=== PATIENT | male | born 1995 | race Caucasian/White ===

== ENCOUNTER → 2016-10-17 | Outpatient (REF) | payer BC ==
[~2016-10-17] MED LIST: CELE20TA PO
[2016-10-17 12:20] LABS: BASO % 0.9 % (0.0-1.0); EOS # 0.1 K/mm3 (0.0-0.50); EOS % 1.8 % (0.0-3.0); LARGE UNSTAINED CELL # 0.1 K/mm3 (0.0-0.4); LARGE UNSTAINED CELL % 2.3 % (0.0-4.0); LYMPH # 2.5 K/mm3 (1.5-6.5); LYMPH % 45.7 % (24.0-44.0); MEAN CORPUSCULAR HEMOGLOBIN 31.6 pg (27.0-33.0); MEAN CORPUSCULAR HGB CONC 34.5 g/dl (32.0-36.5); MEAN CORPUSCULAR VOLUME 91.7 fl (80.0-96.0); MONO # 0.4 K/mm3 (0.0-0.8); MONO % 7.3 % (0.0-5.0); NEUTROPHILS # 2.2 K/mm3 (1.8-7.7); PLATELET COUNT, AUTOMATED 189 k/mm3 (150-450); RED CELL DISTRIBUTION WIDTH 13.5 % (11.5-14.5); WHITE BLOOD COUNT 5.1 K/mm3 (4.0-10.0)
[2016-10-17 13:01] LABS: ALBUMIN 4.3 GM/DL (3.2-5.2); ALBUMIN/GLOBULIN RATIO 1.34 (1.00-1.93); ALKALINE PHOSPHATASE 116 U/L (45-117); ALT/SGPT 36 U/L (12-78); ANION GAP 5 MEQ/L (8-16); AST/SGOT 21 U/L (15-37); BILIRUBIN,TOTAL 0.5 MG/DL (0.2-1.0); BLOOD UREA NITROGEN 12 MG/DL (7-18); CALCIUM LEVEL 8.8 MG/DL (8.5-10.1); CARBON DIOXIDE LEVEL 26 MEQ/L (21-32); CHLORIDE LEVEL 106 MEQ/L (98-107); CHOLESTEROL LEVEL 142 MG/DL (<200); GLOMERULAR FILTRATION RATE > 60.0 (>60); GLUCOSE, FASTING 85 MG/DL (70-105); POTASSIUM SERUM 4.7 MEQ/L (3.5-5.1); SODIUM LEVEL 137 MEQ/L (136-145); TOTAL PROTEIN 7.5 GM/DL (6.4-8.2); TRIGLYCERIDES LEVEL 146 MG/DL (<150)
== END ==
LOC: M LABDRAW1 12:05
PROVIDERS: ATTEND Emergency Medicine
DX: I10 Essential (primary) hypertension (principal)

== ENCOUNTER 2018-09-05 21:55 | Emergency (ER) | payer BC ==
--- NOTE | 2018-09-05 22:43 | REPVR ---
EXAM: CT Head Without Contrast EXAM DATE/TIME: 09/05/2018 10:21 PM CLINICAL HISTORY: 23 years old, male; Signs and symptoms; Other: Seizure activity; Additional info: Drug overdose TECHNIQUE: Imaging protocol: Axial computed tomography images of the head/brain without contrast. Radiation optimization: All CT scans at this facility use at least one of these dose optimization techniques: automated exposure control; mA and/or kV adjustment per patient size (includes targeted exams where dose is matched to clinical indication); or iterative reconstruction. COMPARISON: No relevant prior studies available. FINDINGS: Brain: No CT evidence of acute intracranial hemorrhage or acute territorial infarction. No significant mass effect or midline shift. Basal cisterns patent. Ventricles: Normal in size and configuration. Bones/joints: No acute osseous abnormality. Sinuses: Grossly unremarkable. Mastoid air cells: Grossly unremarkable. Soft tissues: Grossly unremarkable. IMPRESSION: No CT evidence of acute intracranial pathology. Electronically signed by: Trevor Dong On 09/05/2018 22:43:07 PM
[2018-09-05] MEDS: NS 1,000 ML IV SCH (22:53)
[2018-09-05 22:58] LABS: BASO # 0.1 10^3/uL (0.0-0.2); BASO % 1.3 % (0.0-1.0); EOS # 0.1 10^3/uL (0.0-0.50); EOS % 1.3 % (0.0-3.0); HEMATOCRIT 45.2 % (42.0-52.0); HEMOGLOBIN 15.9 g/dl (13.5-17.5); LYMPH # 2.3 10^3/uL (1.5-6.5); LYMPH % 43.9 % (24.0-44.0); MEAN CORPUSCULAR HEMOGLOBIN 32.5 pg (27.0-33.0); MEAN CORPUSCULAR HGB CONC 35.2 g/dl (32.0-36.5); MEAN CORPUSCULAR VOLUME 92.4 fl (80.0-96.0); MONO # 0.7 10^3/uL (0.0-0.8); MONO % 13.1 % (0.0-5.0); NEUTROPHILS # 2.1 10^3/uL (1.8-7.7); NEUTROPHILS % 40.2 % (36.0-66.0); PLATELET COUNT, AUTOMATED 112 10^3/uL (150-450); RED BLOOD COUNT 4.89 10^6/uL (4.30-6.10); WHITE BLOOD COUNT 5.3 10^3/uL (4.0-10.0)
[2018-09-05 23:35] LABS: AMPHETAMINES LEVEL URINE NEGATIVE (NEGATIVE); BARBITURATES URINE NEGATIVE (NEGATIVE); BENZODIAZEPINES URINE NEGATIVE (NEGATIVE); CANNABINOIDS URINE NEGATIVE (NEGATIVE); COCAINE METABOLITE URINE NEGATIVE (NEGATIVE); METHADONE URINE NEGATIVE (NEGATIVE); OPIATES URINE NEGATIVE (NEGATIVE); PHENCYCLIDINE URINE NEGATIVE (NEGATIVE)
[2018-09-05 23:57] LABS: ACETAMINOPHEN LEVEL < 2.0 UG/ML (10.0-30.0); ALT/SGPT 129 U/L (12-78); BILIRUBIN,DIRECT 0.2 MG/DL (0.0-0.2); BILIRUBIN,TOTAL 0.5 MG/DL (0.2-1.0); BLOOD UREA NITROGEN 5 MG/DL (7-18); CALCIUM LEVEL 8.8 MG/DL (8.5-10.1); CARBON DIOXIDE LEVEL 22 MEQ/L (21-32); CHLORIDE LEVEL 106 MEQ/L (98-107); CPK CREATINE PHOSPHOKINASE 158 U/L (39-308); CREATININE FOR GFR 0.87 MG/DL (0.70-1.30); ETHYL ALCOHOL (ETHANOL) 0.368 % (0.000-0.010); GLOMERULAR FILTRATION RATE > 60.0 (>60); GLUCOSE, FASTING 103 MG/DL (70-100); SALICYLATE LEVEL 6.2 MG/DL (5.0-30.0); SODIUM LEVEL 140 MEQ/L (136-145); TOTAL PROTEIN 7.4 GM/DL (6.4-8.2)
[2018-09-06] MEDS ORDERED: THIAMINE HCL 200 MG/2 ML VIAL (J3411) IV ONE (00:15)
[2018-09-06] MEDS: NS 1,000 ML IV SCH (08:00)
[2018-09-06] MEDS ORDERED: OXAZEPAM 15 MG CAP PO ONE (09:15)
[2018-09-06 12:44] VITALS: BP 139/66
--- NOTE | 2018-09-07 20:54 | ECGEPIP ---
Stationary ECG Study [facility] - ED Test Date: 2018-09-05 Pat Name: CARLOS GUPTA Department: Room: - Gender: M Return Agent: : 1995 Requested By: MAAL Milian Order Number: [id number] Reading MD: Henna Bobo Measurements Intervals [place] Rate: 81 P: 66 WV: 164 QRS: 83 QRSD: 99 T: 62 QT: 372 QTc: 434 Interpretive Statements SINUS RHYTHM DECREASED RATE 11/03/14 Electronically Signed On 09-07-2018 20:54:31 EDT by Henna Bobo
[2018-09-08 10:41] LABS: HEPATITIS B SURFACE ANTIGEN NEGATIVE (NEGATIVE)
[2018-09-08 11:08] LABS: HEPATITIS B CORE ANTIBODY IGM NEGATIVE (NEGATIVE); HEPATITIS C VIRUS ABY INDEX < 0.0 INDEX (<0.8)
[2018-09-08 11:10] LABS: HEPATITIS A ANTIBODY IGM NEGATIVE (NEGATIVE)
== END 2018-09-06 12:46 | disposition home or self-care (01) ==
LOC: EDBD 21:55 → M ED 21:55
DX: F10.120 Alcohol abuse with intoxication, uncomplicated (principal); F12.90 Cannabis use, unspecified, uncomplicated; F60.9 Personality disorder, unspecified; F41.9 Anxiety disorder, unspecified; F32.9 Major depressive disorder, single episode, unspecified; J30.2 Other seasonal allergic rhinitis; J30.81 Allergic rhinitis due to animal (cat) (dog) hair and dander; Z79.899 Other long term (current) drug therapy; Z91.5 Personal history of self-harm
CPT/HCPCS: 70450; 80048; 80076; 80307; 82550; 84443; 85025; 86705; 86709; 86803; 87340; 93005; 93041; 94760; 99285; G0480; J3411

== ENCOUNTER 2019-03-04 18:59 | Emergency (ER) | payer BC ==
[~2019-03-04] VITALS: Ht 177.8 cm; Wt 80.0 kg
[2019-03-04 19:46] LABS: HEMATOCRIT 49.6 % (42.0-52.0); HEMOGLOBIN 16.4 g/dl (13.5-17.5); MEAN CORPUSCULAR HEMOGLOBIN 31.6 pg (27.0-33.0); MEAN CORPUSCULAR HGB CONC 33.1 g/dl (32.0-36.5); MEAN CORPUSCULAR VOLUME 95.6 fl (80.0-96.0); PLATELET COUNT, AUTOMATED 312 10^3/uL (150-450); RED BLOOD COUNT 5.19 10^6/uL (4.30-6.10); WHITE BLOOD COUNT 7.2 10^3/uL (4.0-10.0)
[2019-03-04 20:12] LABS: AMPHETAMINES LEVEL URINE NEGATIVE (NEGATIVE); BARBITURATES URINE NEGATIVE (NEGATIVE); BENZODIAZEPINES URINE NEGATIVE (NEGATIVE); CANNABINOIDS URINE NEGATIVE (NEGATIVE); COCAINE METABOLITE URINE NEGATIVE (NEGATIVE); METHADONE URINE NEGATIVE (NEGATIVE); OPIATES URINE NEGATIVE (NEGATIVE); PHENCYCLIDINE URINE NEGATIVE (NEGATIVE)
[2019-03-04] MEDS ORDERED: NICOTINE 21MG/24HR 1 EA TRANSDERMAL TD ONE (20:30)
[2019-03-04 20:31] LABS: ACETAMINOPHEN LEVEL < 2.0 UG/ML (10.0-30.0); ALBUMIN 4.2 GM/DL (3.2-5.2); ALT/SGPT 48 U/L (12-78); BILIRUBIN,DIRECT 0.2 MG/DL (0.0-0.2); BILIRUBIN,TOTAL 0.5 MG/DL (0.2-1.0); BLOOD UREA NITROGEN 8 MG/DL (7-18); CALCIUM LEVEL 9.1 MG/DL (8.5-10.1); CARBON DIOXIDE LEVEL 23 MEQ/L (21-32); CHLORIDE LEVEL 100 MEQ/L (98-107); ETHYL ALCOHOL (ETHANOL) 0.368 % (0.000-0.010); GLOMERULAR FILTRATION RATE > 60.0 (>60); GLUCOSE, FASTING 71 MG/DL (70-100); POTASSIUM SERUM 4.1 MEQ/L (3.5-5.1); SALICYLATE LEVEL 5.6 MG/DL (5.0-30.0); SODIUM LEVEL 137 MEQ/L (136-145); TOTAL PROTEIN 7.9 GM/DL (6.4-8.2)
[2019-03-05 12:50] VITALS: BP 164/98
== END 2019-03-05 13:16 | disposition home or self-care (01) ==
LOC: M ED 18:59
DX: F10.24 Alcohol dependence with alcohol-induced mood disorder (principal); F33.9 Major depressive disorder, recurrent, unspecified; J30.2 Other seasonal allergic rhinitis
CPT/HCPCS: 36415; 80048; 80076; 80307; 84443; 85027; 99284; G0480

== ENCOUNTER → 2019-03-04 | Outpatient (CLI) | payer BC ==
[2019-03-04 17:31] LABS: BASO # 0.1 10^3/uL (0.0-0.2); BASO % 1.4 % (0.0-1.0); EOS % 0.4 % (0.0-3.0); HEMOGLOBIN 16.4 g/dl (13.5-17.5); LYMPH # 2.3 10^3/uL (1.5-5.0); MEAN CORPUSCULAR HEMOGLOBIN 31.6 pg (27.0-33.0); MEAN CORPUSCULAR HGB CONC 33.5 g/dl (32.0-36.5); MEAN CORPUSCULAR VOLUME 94.4 fl (80.0-96.0); MONO # 0.8 10^3/uL (0.0-0.8); MONO % 11.1 % (0.0-5.0); NEUTROPHILS # 3.9 10^3/uL (1.5-8.5); NEUTROPHILS % 54.8 % (36.0-66.0); PLATELET COUNT, AUTOMATED 323 10^3/uL (150-450); RED BLOOD COUNT 5.19 10^6/uL (4.30-6.10); WHITE BLOOD COUNT 7.1 10^3/uL (4.0-10.0)
[2019-03-04 17:53] LABS: ALBUMIN 4.2 GM/DL (3.2-5.2); ALT/SGPT 46 U/L (12-78); BILIRUBIN,TOTAL 0.5 MG/DL (0.2-1.0); BLOOD UREA NITROGEN 9 MG/DL (7-18); CALCIUM LEVEL 9.6 MG/DL (8.5-10.1); CARBON DIOXIDE LEVEL 25 MEQ/L (21-32); CHLORIDE LEVEL 101 MEQ/L (98-107); CREATININE FOR GFR 0.95 MG/DL (0.70-1.30); GLOMERULAR FILTRATION RATE > 60.0 (>60); GLUCOSE, FASTING 84 MG/DL (70-100); POTASSIUM SERUM 4.6 MEQ/L (3.5-5.1); SODIUM LEVEL 137 MEQ/L (136-145); TOTAL PROTEIN 7.8 GM/DL (6.4-8.2)
[2019-03-04 17:54] LABS: APPEARANCE, URINE CLEAR (CLEAR); BACTERIA, URINE AUTO NEGATIVE (NEGATIVE); BILIRUBIN, URINE AUTO NEGATIVE (NEGATIVE); BLOOD, URINE BLOOD 2+ (NEGATIVE); COLOR, URINE YELLOW (YELLOW); GLUCOSE, URINE (UA) AUTO NEGATIVE (NEGATIVE); KETONE, URINE AUTO 1+ mg/dL (NEGATIVE); LEUKOCYTE ESTERASE, URINE AUTO NEGATIVE (NEGATIVE); MUCUS, URINE SMALL (NEGATIVE); NITRITE, URINE AUTO NEGATIVE (NEGATIVE); PROTEIN, URINE AUTO 1+ mg/dL (NEGATIVE); RBC, URINE AUTO 12 /HPF (0-3); SPECIFIC GRAVITY URINE AUTO 1.012 (1.002-1.035); SQUAMOUS EPITHELIAL CELL UR AU 0 /HPF (0-6); UROBILINOGEN, URINE AUTO 0.2 mg/dL (0.0-2.0); WBC, URINE AUTO 1 /HPF (0-3)
[2019-03-04 22:47] LABS: CHLAMYDIA DNA AMPLIFICATION NEGATIVE (NEGATIVE); GC DNA AMPLIFICATION NEGATIVE (NEGATIVE)
== END ==
LOC: M LAB 16:50
PROVIDERS: ATTEND Family Medicine
DX: N18.1 Chronic kidney disease, stage 1 (principal)

== ENCOUNTER → 2020-03-03 | Outpatient (CLI) | payer OTHER, SELFPAY | LOC: M OUTALCOH 08:11 | PROVIDERS: ATTEND Psychiatry & Neurology Addiction Medicine | DX: F10.20 Alcohol dependence, uncomplicated (principal); F17.200 Nicotine dependence, unspecified, uncomplicated ==

== ENCOUNTER 2020-03-14 09:00 | Outpatient (RCR) | payer OTHER, SELFPAY | END 2020-04-04 | LOC: M OUTALCOH 09:00 | PROVIDERS: ATTEND Psychiatry & Neurology Addiction Medicine | DX: F10.20 Alcohol dependence, uncomplicated (principal); F17.200 Nicotine dependence, unspecified, uncomplicated ==

== ENCOUNTER 2020-04-28 23:43 | Emergency (ER) | payer OTHER, SELFPAY ==
[~2020-04-28] VITALS: Ht 180.3 cm; Wt 77.3 kg
[2020-04-29] MEDS ORDERED: NS 1,000 ML IV ONE
--- NOTE | 2020-04-29 00:27 | REPVR ---
PROCEDURE INFORMATION: Exam: CT Head Without Contrast Exam date and time: 04/28/2020 11:51 PM Age: 24 years old Clinical indication: Other: Seizure; Additional info: Altered mental status TECHNIQUE: Imaging protocol: Computed tomography of the head without contrast. Radiation optimization: All CT scans at this facility use at least one of these dose optimization techniques: automated exposure control; mA and/or kV adjustment per patient size (includes targeted exams where dose is matched to clinical indication); or iterative reconstruction. COMPARISON: CT Head without contrast 09/05/2018 10:11 PM FINDINGS: Brain: No intracranial hemorrhage or extra-axial fluid collection. No evidence of mass effect or midline shift. Hook-white matter differentiation is intact. Cerebral ventricles: No ventriculomegaly. Bones/joints: No acute osseus lesion or fracture. Paranasal sinuses: Visualized sinuses are unremarkable. No fluid levels. Mastoid air cells: Unremarkable. Soft tissues: Unremarkable. IMPRESSION: No acute intracranial pathology. Electronically signed by: Ugo Stapleton On 04/29/2020 00:27:04 AM
[2020-04-29 00:29] LABS: BASO # 0.1 10^3/uL (0.0-0.2); EOS # 0.1 10^3/uL (0.0-0.5); EOS % 1.4 % (0.0-3.0); HEMATOCRIT 41.7 % (42.0-52.0); HEMOGLOBIN 13.7 g/dl (13.5-17.5); LYMPH # 1.7 10^3/uL (1.5-5.0); LYMPH % 28.4 % (24.0-44.0); MEAN CORPUSCULAR HEMOGLOBIN 31.3 pg (27.0-33.0); MEAN CORPUSCULAR HGB CONC 32.9 g/dl (32.0-36.5); MEAN CORPUSCULAR VOLUME 95.2 fl (80.0-96.0); MONO # 0.7 10^3/uL (0.0-0.8); MONO % 11.7 % (0.0-5.0); NEUTROPHILS # 3.3 10^3/uL (1.5-8.5); NEUTROPHILS % 57.3 % (36.0-66.0); PLATELET COUNT, AUTOMATED 127 10^3/uL (150-450); RED BLOOD COUNT 4.38 10^6/uL (4.30-6.10); WHITE BLOOD COUNT 5.8 10^3/uL (4.0-10.0)
[2020-04-29 00:51] LABS: OSMOLALITY SERUM 293 MOSM/KG (275-295)
[2020-04-29 01:04] LABS: ACETAMINOPHEN LEVEL < 2.0 UG/ML (10.0-30.0); ALBUMIN 3.8 GM/DL (3.2-5.2); ALT/SGPT 32 U/L (12-78); BILIRUBIN,DIRECT 0.2 MG/DL (0.0-0.2); BILIRUBIN,TOTAL 0.4 MG/DL (0.2-1.0); BLOOD UREA NITROGEN 13 MG/DL (7-18); CALCIUM LEVEL 9.5 MG/DL (8.5-10.1); CARBON DIOXIDE LEVEL 26 MEQ/L (21-32); CHLORIDE LEVEL 105 MEQ/L (98-107); CPK CREATINE PHOSPHOKINASE 100 U/L (39-308); CREATININE FOR GFR 0.93 MG/DL (0.70-1.30); ETHYL ALCOHOL (ETHANOL) 0.003 % (0.000-0.010); GLOMERULAR FILTRATION RATE > 60.0 (>60); GLUCOSE, FASTING 110 MG/DL (70-100); POTASSIUM SERUM 4.1 MEQ/L (3.5-5.1); SODIUM LEVEL 138 MEQ/L (136-145); TROPONIN I < 0.02 NG/ML (< 0.10)
[2020-04-29 01:10] LABS: AMPHETAMINES LEVEL URINE NEGATIVE (NEGATIVE); BARBITURATES URINE NEGATIVE (NEGATIVE); BENZODIAZEPINES URINE NEGATIVE (NEGATIVE); CANNABINOIDS URINE NEGATIVE (NEGATIVE); COCAINE METABOLITE URINE NEGATIVE (NEGATIVE); METHADONE URINE NEGATIVE (NEGATIVE); OPIATES URINE NEGATIVE (NEGATIVE); PHENCYCLIDINE URINE NEGATIVE (NEGATIVE)
--- NOTE | 2020-04-29 01:31 | REPVR ---
PROCEDURE INFORMATION: Exam: XR Chest, 1 View Exam date and time: 04/29/2020 12:59 AM Age: 24 years old Clinical indication: Other: Altered mental status TECHNIQUE: Imaging protocol: XR of the chest Views: 1 view. COMPARISON: No relevant prior studies available. FINDINGS: Lungs: Unremarkable. No consolidation. Pleural space: Unremarkable. No pleural effusion. No pneumothorax. Heart/Mediastinum: Unremarkable. No cardiomegaly. Bones/joints: Unremarkable. IMPRESSION: No acute findings. Electronically signed by: Partha Mendoza On 04/29/2020 01:31:39 AM
--- NOTE | 2020-04-29 01:33 | REPVR ---
PROCEDURE INFORMATION: Exam: XR Right Shoulder Exam date and time: 04/29/2020 12:17 AM Age: 24 years old Clinical indication: Pain; Shoulder; Right TECHNIQUE: Imaging protocol: XR Right shoulder. Views: 2 or more views. COMPARISON: No relevant prior studies available. FINDINGS: Bones/joints: Acute glenoid, and greater tuberosity mildly displaced fractures. Humeral head appears anteriorly subluxed and/or dislocated, suboptimal views related to portable technique. Soft tissues: Soft tissue swelling. IMPRESSION: 1. Acute glenoid, and greater tuberosity mildly displaced fractures. 2. Humeral head appears anteriorly subluxed and/or dislocated, suboptimal views related to portable technique. Electronically signed by: Partha Mendoza On 04/29/2020 01:33:05 AM
[2020-04-29] MEDS ORDERED: levETIRAcetam INJection 1,000 MG in D5W 100 ML IV ONE (01:45)
--- NOTE | 2020-04-29 02:04 | REPVR ---
PROCEDURE INFORMATION: Exam: CT Right Upper Extremity Without Contrast, Shoulder Exam date and time: 04/29/2020 1:35 AM Age: 24 years old Clinical indication: Pain; Shoulder; Right; Additional info: Pain/dislocation TECHNIQUE: Imaging protocol: CT of the Right upper extremity without contrast was performed. Exam focused on the shoulder. Radiation optimization: All CT scans at this facility use at least one of these dose optimization techniques: automated exposure control; mA and/or kV adjustment per patient size (includes targeted exams where dose is matched to clinical indication); or iterative reconstruction. COMPARISON: CR Shoulder, complete RIGHT 2020-04-29 00:50 FINDINGS: Bones/joints: Anteriorly subluxed right humerus. Acute inferior anterior glenoid displaced fracture. Nondisplaced humeral greater tuberosity fracture. Soft tissues: Soft tissue swelling. IMPRESSION: Anteriorly subluxed right humerus. Acute inferior anterior glenoid displaced fracture. Nondisplaced humeral greater tuberosity fracture. Electronically signed by: Partha Mendoza On 04/29/2020 02:04:15 AM
[2020-04-29] MEDS ORDERED: KEPP1TAB2 PO (02:31)
[2020-04-29] MEDS ORDERED: levETIRAcetam 250MG TABLET (KEPPRA) PO ONE (02:45)
[2020-04-29] MEDS ORDERED: HYDROMORPHONE HCL 0.5 MG/ 0.5 ML SYRINGE (J1170 PER 1) IV ONE (03:00)
[2020-04-29] MEDS ORDERED: KETO10TAB PO (03:09)
[2020-04-29] MEDS ORDERED: OXYCODONE/APAP 5MG/325MG(BULK FOR ED) 1 TABLET PO ONE (03:15)
[2020-04-29 03:33] VITALS: BP 152/98
--- NOTE | 2020-04-29 07:44 | ECGEPIP ---
[facility] - ED Test Date: 2020-04-29 Pat Name: CARLOS GUPTA Department: Room: - Gender: Male Commercial Roofer: engle : 1995 Requested By: WILDER Lee Order Number: [id number] Reading MD: Henna Bobo Measurements Intervals [place] Rate: 85 P: 55 [place]: 162 QRS: 72 QRSD: 99 T: 40 QT: 373 QTc: 445 Interpretive Statements SINUS RHYTHM POSSIBLE RIGHT VENTRICULAR CONDUCTION DELAY SIMILAR 09/05/18 Electronically Signed on 04-29-2020 7:44:04 EST by Henna Bobo
--- NOTE | 2020-04-29 10:01 | ED PDOC ---
Post-Departure Follow-Up radiology report faxed to Henna Adams MD Apr 29, 2020 10:01
== END 2020-04-29 03:45 | disposition home or self-care (01) ==
LOC: M ED 23:43
DX: G40.909 Epilepsy, unspecified, not intractable, without status epilepticus (principal); F17.200 Nicotine dependence, unspecified, uncomplicated; F12.10 Cannabis abuse, uncomplicated; S42.141A Displaced fracture of glenoid cavity of scapula, right shoulder, initial encounter for closed fracture; S42.254A Nondisplaced fracture of greater tuberosity of right humerus, initial encounter for closed fracture; X58.XXXA Exposure to other specified factors, initial encounter; Y92.9 Unspecified place or not applicable; Y93.9 Activity, unspecified; Y99.9 Unspecified external cause status; J30.81 Allergic rhinitis due to animal (cat) (dog) hair and dander; J30.2 Other seasonal allergic rhinitis
CPT/HCPCS: 70450; 71045; 73030; 73200; 80048; 80076; 80307; 81001; 82550; 82553; 83605; 83930; 84443; 85025; 87040; 93005; 93041; 94760; 96361; 96365; 96375; 99285; G0480; J1170; J1953

== ENCOUNTER → 2020-06-01 | Outpatient (REF) | payer OTHER ==
[~2020-06-01] MED LIST changes: +KEPP1TAB2 PO; +KETO10TAB PO
[2020-06-01 14:28] LABS: BASO # 0.1 10^3/uL (0.0-0.2); BASO % 1.6 % (0.0-1.0); EOS # 0.1 10^3/uL (0.0-0.5); EOS % 0.8 % (0.0-3.0); HEMATOCRIT 48.9 % (42.0-52.0); HEMOGLOBIN 16.2 g/dl (13.5-17.5); LYMPH # 2.5 10^3/uL (1.5-5.0); MEAN CORPUSCULAR HGB CONC 33.1 g/dl (32.0-36.5); MEAN CORPUSCULAR VOLUME 96.6 fl (80.0-96.0); MONO # 0.6 10^3/uL (0.0-0.8); NEUTROPHILS # 3.1 10^3/uL (1.5-8.5); NEUTROPHILS % 49.4 % (36.0-66.0); PLATELET COUNT, AUTOMATED 165 10^3/uL (150-450); RED BLOOD COUNT 5.06 10^6/uL (4.30-6.10); WHITE BLOOD COUNT 6.3 10^3/uL (4.0-10.0)
[2020-06-01 14:42] LABS: INR 0.93; PARTIAL THROMBOPLASTIN TIME 32.5 SECONDS (24.2-38.5); PROTHROMBIN TIME 12.7 SECONDS (12.5-14.3)
[2020-06-01 14:57] LABS: ALBUMIN 3.9 GM/DL (3.2-5.2); ALT/SGPT 31 U/L (12-78); BILIRUBIN,TOTAL 0.5 MG/DL (0.2-1.0); BLOOD UREA NITROGEN 6 MG/DL (7-18); CARBON DIOXIDE LEVEL 30 MEQ/L (21-32); CHLORIDE LEVEL 104 MEQ/L (98-107); CHOLESTEROL LEVEL 154 MG/DL (<200); CREATININE FOR GFR 0.89 MG/DL (0.70-1.30); ETHYL ALCOHOL (ETHANOL) 0.236 % (0.000-0.010); FREE T4 0.84 NG/DL (0.76-1.46); GLOMERULAR FILTRATION RATE > 60.0 (>60); GLUCOSE, FASTING 137 MG/DL (70-100); HDL CHOLESTEROL 114 MG/DL (>40); LDL CHOLESTEROL 32 MG/DL (<100); NON-HDL-C 40 MG/DL; POTASSIUM SERUM 4.4 MEQ/L (3.5-5.1); SODIUM LEVEL 140 MEQ/L (136-145); TOTAL PROTEIN 7.5 GM/DL (6.4-8.2); TRIGLYCERIDES LEVEL 41 MG/DL (<150)
[2020-06-01 15:35] LABS: HEMOGLOBIN A1c 4.7 %
== END ==
LOC: M SFHCPLAZ 10:37
PROVIDERS: ATTEND Physician Assistant Medical
DX: Z00.00 Encounter for general adult medical examination without abnormal findings (principal); Z13.220 Encounter for screening for lipoid disorders; Z13.1 Encounter for screening for diabetes mellitus; R56.9 Unspecified convulsions; F10.20 Alcohol dependence, uncomplicated

== ENCOUNTER 2020-06-03 14:41 | Emergency (ER) | payer OTHER ==
--- OUTSIDE RECORDS SUMMARY | 2020-06-03 14:50 | CCD | Continuity of Care Document ---
Author Author Ranjit CHAVIRA Organization Unknown Address [address] [place] [address], [address] [place] [address] Phone [phone] Care Team Providers Care Fire Investigator Name Role Phone Partha Rodriguez MD AUTM [phone] Aure James MD AUTM [phone] Problems Active Problems Provider Date Essential hypertension DAkhil Zapien MD Onset: 05/04 Social History Type Date Description Comments Sex Unknown ETOH Use Currently consumes alcohol Tobacco Use Start: Unknown Patient is a current smoker, smo kes every day Allergies, Adverse Reactions, Alerts Description No Known Drug Allergies Medications Active Medications SIG Qnty Indications Ordering Provide r Date Valium 5mg Tablets take one half hour prior to mri..may repeat in 30 minutes if no effect..do not drive to or from mri 2tabs Allan Gabriel MD 05/10/2020 Acetaminophen-Codeine #3 300-30mg Tablets take 1-2 tablet every 6 hours as needed for pain 30tabs S42.254A Diego Davis MD 05/02/2020 Concerta 40mg Tablets ER Unknown Immunizations Description No Information Available Vital Signs Date Vital Result Comment 05/02/2020 5:56pm Body Temperature 98.8 F Height 71.25 inches 5'11.25" Weight 173.00 lb BMI (Body Mass Index) 24.0 kg/m2 05/10/2015 9:27am Body Temperature 98.3 F Height 69.75 inches 5'9.75" Weight 181.12 lb BMI (Body Mass Index) 26.2 kg/m2 Results Description No Information Available Procedures Date Code Description Status 05/11/2020 83356 MRI Upper Extremity Any Joint Co mpleted 05/04/2020 85588 X-Ray Shoulder Complete Complete d 05/02/2020 53226 FX Proximal Humerus W/O Manipula tion Completed Medical Devices Description No Information Available Encounters Type Date Location Provider Dx Diagnosis Office Visit 05/04/2020 5:00p [facility] Steph Gabriel PA-C S42.254 D Nondisp fx of greater tuberosity of r humer, 7thD S42.141D Disp fx of glenoid cav of sc apula, r shldr, 7thD Office Visit 05/02/2020 5:30p [facility] MEJIA Paz S42.254 A Nondisp fx of greater tuberosity of right humerus, init S42.141D Disp fx of glenoid cav of sc apula, r shldr, 7thD Assessments Date Code Description Provider 05/11/2020 S42.141D Displaced fracture o f glenoid cavity of scapula, right shoulder, subsequent encounter for fracture with routine healing Allan Gabriel MD 05/11/2020 S42.141D Displaced fracture o f glenoid cavity of scapula, right shoulder, subsequent encounter for fracture with routine healing MRI 05/04/2020 S42.254D Nondisplaced fractur e of greater tuberosity of right humerus, subsequent encounter for fracture with routine healing Steph Gabriel PA-C 05/04/2020 S42.141D Displaced fracture o f glenoid cavity of scapula, right shoulder, subsequent encounter for fracture with routine healing Steph Gabriel PA-C 05/03/2020 S42.141D Displaced fracture o f glenoid cavity of scapula, right shoulder, subsequent encounter for fracture with routine healing MEJIA Paz 05/03/2020 S42.254D Nondisplaced fractur e of greater tuberosity of right humerus, subsequent encounter for fracture with routine healing MEJIA Paz 05/02/2020 S42.254A Nondisplaced fractur e of greater tuberosity of right humerus, initial encounter for closed fracture MEJIA Paz 05/02/2020 S42.141D Displaced fracture o f glenoid cavity of scapula, right shoulder, subsequent encounter for fracture with routine healing MEJIA Paz Plan of Treatment Future Appointment(s):* 05/26/2020 1:45 pm - Steph Gabriel PA-C at [facility] 05/04/2020 - Steph Gabriel PA-C* S42.254D Nondisplaced fracture of greater tuberosity of right humerus, subsequent encounter for fracture with routine healing * S42.141D Displaced fracture of glenoid cavity of scapula, right shoulder, subsequent encounter for fracture with routine healing* Follow up:* [facility] F/u with current appt on 05/10/2020 with [facility] Functional Status Description No Information Available Mental Status Description No Information Available Referrals Refer to Dr Reason for Referral Status Appt Date James Barrientos PA MRI APPROVED PER [email or web address] FOR MRI OF RIGHT SHOULDER (99713) TO MRI. DG Created [facility] [place] [address] [phone] James Barrientos PA DME PER HERMILO Chaidez AT [facility] FOR SHOULDER IMMOBILIZER ([id number]) TO LUMA NT Created [facility] [place] [id number] [phone]
--- OUTSIDE RECORDS SUMMARY | 2020-06-03 14:50 | CCD | Continuity of Care Document ---
Author Author Ranjit BARRIENTOS PA Organization Unknown Address [address] [address] Phone [phone] Care Team Providers Care Plastic Outfitter Name Role Phone Partha Rodriguez MD AUTM [phone] Aure James MD AUTM [phone] Problems Active Problems Provider Date Essential hypertension D. Nikolay Zapien MD Onset: 05/04 Social History Type [...] Information Available Procedures Date Code Description Status 05/04/2020 85106 X-Ray Shoulder Complete Complete d 05/02/2020 59274 FX Proximal Humerus W/O Manipula tion Completed Medical Devices Description No Information Available Encounters Type Date Location Provider Dx Diagnosis Office Visit 05/04/2020 5:00p [facility] Steph Gabriel PA-C S42.254 D Nondisp fx of greater tuberosity of r humer, 7thD S42.141D Disp fx of glenoid cav of sc apula, r shldr, 7thD Office Visit 05/02/2020 5:30p [facility] MEJIA Paz S42.254 A Nondisp fx of greater tuberosity of right humerus, init S42.141D Disp fx of glenoid cav of sc apula, r shldr, 7thD Assessments Date Code Description Provider 05/04/2020 S42.254D Nondisplaced fractur e of greater [...] 1:45 pm - Steph Gabriel PA-C at [facility] 05/04/2020 - Steph Gabriel PA-C* S42.254D Nondisplaced fracture of greater tuberosity of right humerus, subsequent encounter for fracture with routine healing * S42.141D Displaced fracture of glenoid cavity of scapula, right shoulder, subsequent encounter for fracture with routine healing* Follow up:* [facility] F/u with current appt on 05/10/2020 with [facility] Functional Status Description No Information Available Mental Status Description No Information Available Referrals Refer to Reason for Referral Status Appt Date James Barrientos PA MRI APPROVED PER [employer] FOR MRI OF RIGHT SHOULDER ([id number]) TO MRI. DG Created [address] [facility] [address] [place], [place] [id number] [phone] James Barrientos PA DME PER HERMILO Chaidez AT [facility] FOR SHOULDER IMMOBILIZER ([id number]) TO LUMA NT Created [address] [place], [place] [id number] [phone]
--- OUTSIDE RECORDS SUMMARY | 2020-06-03 14:51 | CCD ---
Author Author [facility] Organization [facility] Address Unknown Phone Unavailable Care Team Providers Care Nailhead Setter Name Role Phone Chanel MOSELEY MD Unavailable Unavailable Chanel MOSELEY MD Unavailable Unavailable Chanel MOSELEY MD Unavailable Unavailable Chanel MOSELEY MD Unavailable Unavailable Chanel MOSELEY MD Unavailable Unavailable Chanel MOSELEY MD Unavailable Unavailable Chanel MOSELEY MD Unavailable Unavailable Chanel MOSELEY MD Unavailable Chanel Moyer MD Unavailable Chanel Moyer MD Unavailable Unavailable Chanel MOSELEY MD Unavailable Unavailable Chanel MOSELEY MD Unavailable Unavailable Chanel MOSELEY MD Unavailable Unavailable Chanel MOSELEY MD Unavailable Unavailable Chanel MOSELEY MD Unavailable Unavailable Chanel MOSELEY MD Unavailable Unavailable Chanel MOSELEY MD Unavailable Unavailable Chanel MOSELEY MD Unavailable Unavailable Chanel MOSELEY MD Unavailable Unavailable Chanel MOSELEY MD Unavailable Unavailable Chanel MOSELEY MD Unavailable Unavailable Chanel MOSELEY MD Unavailable Unavailable Chanel MOSELEY MD Unavailable Chanel Moyer MD Unavailable Unavailable Chaenl MOSELEY MD Unavailable Unavailable Chanel MOSELEY MD Unavailable Unavailable Chanel MOSELEY MD Unavailable Unavailable Chanel MOSELEY MD Unavailable Unavailable SETTERChanel MD Unavailable Unavailable SETTER, Chanel BROWN MD Unavailable Unavailable SETTER, Chanel BROWN MD Unavailable Unavailable SETTER, Chanel BROWN MD Unavailable Unavailable SETTER, Chanel BROWN MD Unavailable Unavailable SETTER, Chanel BROWN MD Unavailable Unavailable SETTER, Chanel BROWN MD Unavailable Unavailable SETTER, Chanel BROWN MD Unavailable Unavailable SETTER, Chanel BROWN MD Unavailable Unavailable SETTER, Chanel BROWN MD Unavailable Unavailable SETTER, Chanel BROWN MD Unavailable Unavailable SETTER, Chanel BROWN MD Unavailable Unavailable SETTER, Chanel BROWN MD Unavailable Unavailable SETTER, Chanel BROWN MD Unavailable Unavailable SETTER, Chanel BROWN MD Unavailable Unavailable SETTER, Chanel BROWN MD Unavailable Unavailable SETTER, Chanel BROWN MD Unavailable Unavailable SETTER, Chanel BROWN MD Unavailable Unavailable SETTER, Chanel BROWN MD Unavailable Unavailable SETTER, Chanel BROWN MD Unavailable Unavailable SETTER, Chanel BROWN MD Unavailable Unavailable SETTER, Chanel BROWN MD Unavailable Unavailable SETTER, Chanel BROWN MD Unavailable Unavailable SETTER, Chanel BROWN MD Unavailable Unavailable SETTER, Chanel BROWN MD Unavailable Unavailable SETTER, Chanel BROWN MD Unavailable Unavailable SETTER, Chanel BROWN MD Unavailable Unavailable SETTER, Chanel BROWN MD Unavailable Unavailable SETTER, Chanel BROWN MD Unavailable Unavailable SETTER, Chanel BROWN MD Unavailable Unavailable SETTER, Chanel BROWN MD Unavailable Unavailable SETTER, Chanel BROWN MD Unavailable Unavailable SETTER, Chanel BROWN MD Unavailable Unavailable SETTER, Chanel BROWN MD Unavailable Unavailable SETTER, Chanel BROWN MD Unavailable Unavailable SETTERChanel MD Unavailable Unavailable SETTERChanel MD Unavailable Unavailable SETTERChanel MD Unavailable Unavailable SETTERChanel MD Unavailable Unavailable SETTER, Chanel BROWN MD Unavailable Unavailable SETTER, Chanel BROWN MD Unavailable Unavailable SETTERChanel MD Unavailable Unavailable SETTERChanel MD Unavailable Unavailable SETTERChanel MD Unavailable Unavailable SETTERChanel MD Unavailable Unavailable SETTERChanel MD Unavailable Unavailable SETTER, Chnael BROWN MD Unavailable Unavailable SETTER, Chanel BROWN MD Unavailable Unavailable SETTER, Chanel BROWN MD Unavailable Unavailable SETTERChanel MD Unavailable Unavailable SETTERChanel MD Unavailable Unavailable SETTERChanel MD Unavailable Unavailable SETTERChanel MD Unavailable Unavailable SETTERChanel MD Unavailable Unavailable SETTER, Chanel BROWN MD Unavailable Unavailable SETTER, Chanel BROWN MD Unavailable Unavailable SETTER, Chanel BROWN MD Unavailable Unavailable SETTER, Chanel BROWN MD Unavailable Unavailable SETTER, Chanel BROWN MD Unavailable Unavailable SETTER, Chanel BROWN MD Unavailable Unavailable SETTER, Chanel BROWN MD Unavailable Unavailable SETTER, Chanel BROWN MD Unavailable Unavailable SETTER, Chanel BROWN MD Unavailable Unavailable SETTER, Chanel BROWN MD Unavailable Unavailable SETTER, Chanel BROWN MD Unavailable Unavailable SETTER, Chanel BROWN MD Unavailable Unavailable SETTER, Chanel BROWN MD Unavailable Unavailable SETTER, Chanel BROWN MD Unavailable Unavailable SETTER, Chanel BROWN MD Unavailable Unavailable SETTER, Chanel BROWN MD Unavailable Unavailable SETTER, Chanel BROWN MD Unavailable Unavailable SETTER, Chanel BROWN MD Unavailable Unavailable SETTER, Chanel BROWN MD Unavailable Unavailable SETTER, Chanel BROWN MD Unavailable Unavailable SETTER, Chanel BROWN MD Unavailable Unavailable SETTER, Chanel BROWN MD Unavailable Unavailable SETTER, Chanel BROWN MD Unavailable Unavailable SETTER, Chanel BROWN MD Unavailable Unavailable SETTER, Chanel BROWN MD Unavailable Unavailable Fish, [facility], PA-C Unavailable Unavailabl e Fish, [facility], PA-C Unavailable Unavailabl e Fish, [facility], PA-C Unavailable Unavailabl e Fish, [facility], PA-C Unavailable Unavailabl e Fish, [facility], PA-C Unavailable Unavailabl e Fish, [facility], PA-C Unavailable Unavailabl e Fish, [facility], PA-C Unavailable Unavailabl e Fish, [facility], PA-C Unavailable Unavailabl e Fish, [facility], PA-C Unavailable Unavailabl e Fish, [facility], PA-C Unavailable Unavailabl e Fish, [facility], PA-C Unavailable Unavailabl e Fish, [facility], PA-C Unavailable Unavailabl e Fish, [facility], PA-C Unavailable Unavailabl e Fish, [facility], PA-C Unavailable Unavailabl e Fish, [facility], PA-C Unavailable Unavailabl e Fish, [facility], PA-C Unavailable Unavailabl e Fish, [facility], PA-C Unavailable Unavailabl e Fish, [facility], PA-C Unavailable Unavailabl e Fish, [facility], PA-C Unavailable Unavailabl e Fish, [facility], PA-C Unavailable Unavailabl e Fish, [facility], PA-C Unavailable Unavailabl e Fish, [facility], PA-C Unavailable Unavailabl e Fish, [facility], PA-C Unavailable Unavailabl e Fish, [facility], PA-C Unavailable Unavailabl e Fish, [facility], PA-C Unavailable Unavailabl e Fish, [facility], PA-C Unavailable Unavailabl e Fish, [facility], PA-C Unavailable Unavailabl e Fish, [facility], PA-C Unavailable Unavailabl e Fish, [facility], PA-C Unavailable Unavailabl e Fish, [facility], PA-C Unavailable Unavailabl e Fish, [facility], PA-C Unavailable Unavailabl e Fish, [facility], PA-C Unavailable Unavailabl e Fish, [facility], PA-C Unavailable Unavailabl e Liban Arredondo MD Unavailable Unavailable Liban Arredondo MD Unavailable Unavailable Liban Arredondo MD Unavailable Unavailable Liban Arredondo MD Unavailable Unavailable Liban Arredondo MD Unavailable Unavailable Liban Arredondo MD Unavailable Unavailable Liban Arredondo MD Unavailable Unavailable Liban Arredondo MD Unavailable Unavailable Liban Arredondo MD Unavailable Unavailable Liban Arredondo MD Unavailable Unavailable Liban Arredondo MD Unavailable Unavailable Liban Arredondo MD Unavailable Unavailable Liban Arredondo MD Unavailable Unavailable Liban Arredondo MD Unavailable Unavailable Liban Arredondo MD Unavailable Unavailable iLban Arredondo MD Unavailable Unavailable Liban Arredondo MD Unavailable Unavailable Liban Arredondo MD Unavailable Unavailable Liban Arredondo MD Unavailable Unavailable Liban Arredondo MD Unavailable Unavailable Liban Arredondo MD Unavailable Unavailable Liban Arredondo MD Unavailable Unavailable Liban Arredondo MD Unavailable Unavailable Liban Arredondo MD Unavailable Unavailable Liban Arredondo MD Unavailable Unavailable Liban Arredondo MD Unavailable Unavailable Liban Arredondo MD Unavailable Unavailable Liban Arredondo MD Unavailable Unavailable Liban Arredondo MD Unavailable Unavailable Liban Arredondo MD Unavailable Unavailable Liban Arredondo MD Unavailable Unavailable Liban Arredondo MD Unavailable Unavailable Liban Arredondo MD Unavailable Unavailable Liban Arredondo MD Unavailable Unavailable Liban Arredondo MD Unavailable Unavailable Liban Arredondo MD Unavailable Unavailable Liban Arredondo MD Unavailable Unavailable AliLiban MD Unavailable Unavailable Ali, Liban MD Unavailable Unavailable Ali, Liban MD Unavailable Unavailable Ali, Liban MD Unavailable Unavailable Ali, Liban MD Unavailable Unavailable Ali, Liban MD Unavailable Unavailable Ali, Liban MD Unavailable Unavailable Ali, Liban MD Unavailable Unavailable Ali, Liban MD Unavailable Unavailable Ali, Lbian MD Unavailable Unavailable Ali, Liban MD Unavailable Unavailable Ali, Liban MD Unavailable Unavailable DIEGO, M JUGN PA Unavailable Unavailable DIEGO, M JUNG PA Unavailable Unavailable DIEGO, M JUNG PA Unavailable Unavailable DIEGO, M JUNG PA Unavailable Unavailable DIEGO, M JUNG PA Unavailable Unavailable DIEGO, M JUNG PA Unavailable Unavailable DIEGO, M JUNG PA Unavailable Unavailable DIEGO, M JUNG PA Unavailable Unavailable DIEGO, M UJNG PA Unavailable Unavailable DIEGO, M JUNG PA Unavailable Unavailable DIEGO, M JUNG PA Unavailable Unavailable DIEGO, M JUNG PA Unavailable Unavailable DIEGO, M JUNG PA Unavailable Unavailable DIEGO, M JUNG PA Unavailable Unavailable DIEGO, M JUNG PA Unavailable Unavailable DIEGO, M JUNG PA Unavailable Unavailable DIEGO, M JUNG PA Unavailable Unavailable DIEGO, M JUNG PA Unavailable Unavailable DIEGO, M JUNG PA Unavailable Unavailable DIEGO, M JUNG PA Unavailable Unavailable DIEGO, M JUNG PA Unavailable Unavailable DIEGO, M JUNG PA Unavailable Unavailable DIEGO, M JUNG PA Unavailable Unavailable DIEGO, M JUNG PA Unavailable Unavailable Re-disclosure Warning The records that you are about to access may contain information from federally-assisted alcohol or drug abuse programs. If such information is present, then the following federally mandated warning applies: This information has been disclosed to you from records protected by federal confidentiality rules (42 CFR part 2). The federal rules prohibit you from making any further disclosure of this information unless further disclosure is expressly permitted by the written consent of the person to whom it pertains or as otherwise permitted by 42 CFR part 2. A general authorization for the release of medical or other information is NOT sufficient for this purpose. The Federal rules restrict any use of the information to criminally investigate or prosecute any alcohol or drug abuse patient.The records that you are about to access may contain highly sensitive health information, the redisclosure of which is protected by Article 27-F of the [place] State Public Health law. If you continue you may have access to information: Regarding HIV / AIDS; Provided by facilities licensed or operated by the [facility] Office of Mental Health; or Provided by the [facility] Office for People With Developmental Disabilities. If such information is present, then the following [facility] mandated warning applies: This information has been disclosed to you from confidential records which are protected by state law. State law prohibits you from making any further disclosure of this information without the specific written consent of the person to whom it pertains, or as otherwise permitted by law. Any unauthorized further disclosure in violation of state law may result in a fine or mcfp sentence or both. A general authorization for the release of medical or other information is NOT sufficient authorization for further disc losure. Family History Family Member Name Family Member Gender Family Member Status Date o f Status Description Data Source(s) Unknown Unknown Problem [facility] ([facility] Encounters Encounter Providers Location Date Indications Data Source(s ) Outpatient Attender: STEPHANIE MOSELEY MD 06/15/2020 12:00:[address] [facility] Outpatient Attender: Liban Arredondo MD Main office [facility] 05/17/2020 07:00:00 AM EST [facility] ([facility]) Office Visit Attender: Steph PENA PA-C Physical Therapy 05/04/2020 04:00:00 PM EST [facility] ([facility]) Outpatient Attender: JUNG BA Physical Therapy 04/06 04:30:00 PM EST [facility] ([facility]) Medications Medication Brand Name Start Date Product Form Dose Route Admi nistrative Instructions Pharmacy Instructions Status Indications Reaction Description Data Source(s) 25 mg 05/31/2020 12:00:00 AM EST tablet extended release 24 hr 30 TAKE ONE TABLET BY MOUTH EVERY DAY TAKE ONE TABLET BY MOUTH EVERY DAY SOLD: 06/01/2020 [facility] 50 mg 05/31/2020 12:00:00 AM EST tablet 30 TAKE 1 TABLET BY MOUTH BEFORE BEDTIME TAKE 1 TABLET BY MOUTH BEFORE BEDTIME SOLD: 06/01/2020 [facility] 750 mg 05/17/2020 12:00:00 AM EST tablet 60 TAKE ONE TABLET BY MOUTH TWICE A DAY TAKE ONE TABLET BY MOUTH TWICE A DAY SOLD: 05/19/2020 [facility] Levetiracetam 750 MG Oral Tablet Levetiracetam 05/17/2020 12:00:00 AM EST ORAL active [facility] ([facility]) 5 mg 05/10/2020 12:00:00 AM EST tablet 2 TAKE ONE TABLET BY MOUTH 1/2 HOUR PRIOR TO MRI MAY REPEAT IN 30 MINUTES IF NO EFFECT DO NOT DRIVE TO OR FROM MRI MAXIMUM DAILY DOSE = 2 TABLETS TAKE ONE TABLET BY MOUTH 1/2 HOUR PRIOR TO MRI MAY REPEAT IN 30 MINUTES IF NO EFFECT DO NOT DRIVE TO OR FROM MRI MAXIMUM DAILY DOSE = 2 TABLETS SOLD: 05/10/2020 [facility] Diazepam 5 MG Oral Tablet [Valium] Valium 05/10/2020 12:00:00 AM EST active [facility] ([facility]) 300-30 mg 05/02/2020 12:00:00 AM EST tablet 30 TAKE 1-2 TABLETS BY MOUTH EVERY 6 HOURS NEEDED FOR PAIN MAXIMUM DAILY DOSE = 6 TABLETS TAKE 1-2 TABLETS BY MOUTH EVERY 6 HOURS NEEDED FOR PAIN MAXIMUM DAILY DOSE = 6 TABLETS SOLD: 05/03/2020 [facility] Acetaminophen 300 MG / Codeine Phosphate 30 MG Oral Ta blet Acetaminophen-Codeine #3 05/02/2020 12:00:00 AM EST active [facility] ([facility]) 750 mg 04/30/2020 12:00:00 AM EST tablet 60 TAKE ONE TABLET BY MOUTH TWICE A DAY TAKE ONE TABLET BY MOUTH TWICE A DAY SOLD: 04/30/2020 [facility] 10 mg 04/30/2020 12:00:00 AM EST tablet 20 TAKE ONE TABLET BY MOUTH EVERY 6 HOURS NEEDED FOR PAIN TAKE ONE TABLET BY MOUTH EVERY 6 HOURS A S NEEDED FOR PAIN SOLD: 04/30/2020 [facility] Insurance Providers Payer name Policy type / Coverage type Policy ID Covered libertarian ID Covered libertarian's relationship to taylor Policy [place] Plan Information TIN [id number] SP [id number] 400 O U[place]VAIL[place] [id number] S [id number] [place] [id number] S [id number] TIN I [id number] Self [id number] SELF PAY ONLY NONE SP NONE TIN [id number] SP [id number] [facility] FEDERAL EMPLOYEE PROGRAM [id number] [id number] [facility] [id number] FA2 [id number] BS [facility] Health Maintenance Organization (HMO) [id number] F amily Dependent [id number] [facility] [id number] [id number] BS [facility] Health Maintenance Organization ([facility] [id number] F amily Dependent [id number] [employer] Medigap Part B Family Depe ndent BS [facility] Health Maintenance Organization (O) F amily Dependent BS [facility] [id number] [id number] Problems, Conditions, and Diagnoses Code Display Name Description Problem Type Effective Dates Data Source(s) 569766868 Syncope and collapse Syncope and collapse Problem 05/17/2020 12:00:00 AM EST [facility] ([facility]) 281781009 Disorders of initiating and maintaining sleep Disorders of initiating and maintaining sleep Problem 05/17/2020 12:00:00 AM EST [facility] ([facility]) 427224255 Chronic tension-type headache Chronic tension-type hea dache Problem 05/17/2020 12:00:00 AM EST [facility] ([facility]) [id number] Localization-related epilepsy Localization-related epi lepsy Problem 05/17/2020 12:00:00 AM EST [facility] ([facility] ) [id number] 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 Problem 05/17/2020 12:00:00 AM EST [facility] ([facility]) [id number] Essential hypertension Essential hypertension Problem 05/04/2020 12:00:00 AM EST [facility] ([facility] ) Surgeries/Procedures Procedure Description Date Indications Data Source(s) MRI Upper Extremity Any Joint 05/11/2020 12:00:[address] [facility] ([facility] ) RADEX SHOULDER COMPLETE MINIMUM 2 VIEWS 05/04/2020 12: 00:00 AM EST [facility] ([facility] ) CLTX PROXIMAL HUMERAL FRACTURE W/O MANIPULATION 2019 12:00:00 AM EST [facility] ([facility] ) Results ID Date Data Source [id number] 05/20/2020 12:00:00 AM EST [facility] Imaging Steph Aceves Harvey Pa-C Patient Name: [place] [id number] [place] 1995[place] [address]- Date of Exam: [facility]#: Fax: [phone] EXAM: CT UPPER EXTREMITY WITHOUT CONTRASTCLINICAL INFORMATION: History of glenoid fracture.Low dose 64 slice helical scanning through the right shoulder was obtainedusing 2 mm increments and reconstructed in both coronal and sagittalplanes. 3D reconstructions were also obtained. Post processing wasperformed at the physician's workstation.There are no prior exams to review, either plain film exams or CT's.There is an essentially nondisplaced fracture through the base of thegreater tuberosity of the humerus. There is a fracture of the inferiorglenoid anteriorly with an intraarticular component and which is displacedapproximately 8 mm from the articular surface. There are no additionalfractures. The glenohumeral and acromioclavicular relationships are withinnormal limits. There is CT evidence of a glenohumeral joint effusion .IMPRESSION:Fractures and other findings as described above.Accredited by the [employer] in [place].CRICKET Silva/Chuyita you for referring CARLOS THOMPSON to our office. Electronically Signed - LYSSA SWANSON DO 05/20/20 16:21 Name Value Range Interpretation Code Description Data Domi rce(s) Supporting Document(s) ID Date Data Source [id number] 04/26/2020 12:00:00 AM EST [facility] Name Value Range Interpretation Code Description Data Domi rce(s) Supporting Document(s) SARS coronavirus [address] [facility] This lab was ordered by [facility] and reported by [facility]. Procedure Vital Signs ID Date Data Source UNK Name Value Range Interpretation Code Description Data Source(s) [place] body weight 172 [lb_av] 172 [lb_av] MEDEN T ([facility] ) Body mass index (BMI) [Ratio] 24.4 kg/m2 24.4 k g/m2 [facility] ([facility], ) Body weight 175.00 [lb_av] 175.00 [lb_av] MEDEN T ([facility], ) Body height 71 [in_i] 71 [in_i] [facility] ([facility], ) 5'11" Respiratory rate 14 /min 14 /min [facility] ( [facility], ) Heart rate 74 /min 74 /min [facility] ([facility] ) Diastolic blood pressure 100 mm[Hg] 100 mm[Hg] [facility] ([facility] ) Systolic blood pressure 140 mm[Hg] 140 mm[Hg] M EDENT ([facility], ) Body mass index (BMI) [Ratio] 24.0 kg/m2 24.0 k g/m2 [facility] ([facility] Body weight 173.00 [lb_av] 173.00 [lb_av] MEDEN T ([facility]) Body height 71.25 [in_i] 71.25 [in_i] [facility] ([facility]) 5'11.25" Body temperature 98.8 [degF] 98.8 [degF] [facility] ([facility])
--- OUTSIDE RECORDS SUMMARY | 2020-06-03 14:51 | CCD | Continuity of Care Document ---
Author Author Ranjit SABA-C Organization Unknown Address [address] [facility] [address] [place] [address] Phone [phone] Care Team Providers Care Grill Prep Cook Name Role Phone Partha Rodriguez MD AUTM [phone] Aure James MD AUTM [phone] Problems Active Problems Provider Date Essential hypertension DAkhil Zapien MD Onset: 05/04 Social History Type Date Description Comments Sex Unknown ETOH Use Currently consumes alcohol Tobacco Use Start: Unknown Patient is a current smoker, smo kes every day Allergies, Adverse Reactions, Alerts Description No Known Drug Allergies Medications Active Medications SIG Qnty Indications Ordering Provide r Date Acetaminophen-Codeine #3 300-30mg Tablets take 1-2 tablet every 6 hours as needed for pain 30tabs S42.141A Diego Davis MD 05/02/2020 Concerta 40mg Tablets [...] Available Procedures Date Code Description Status 05/04/2020 36593 X-Ray Shoulder Complete Complete d 05/02/2020 02139 FX Proximal Humerus W/O Manipula tion Completed Medical Devices Description No Information Available Encounters Type Date Location Provider Dx Diagnosis Office Visit 05/04/2020 5:00p [place] Steph Saba PA-C S42.141 D Disp fx of glenoid cav of scapula, r shldr, 7thD S42.254D Nondisp fx of greater tubero sity of r humer, 7thD Office Visit 05/02/2020 5:30p [place] MEJIA Paz S42.141 A Disp fx of glenoid cavity of scapula, right shoulder, init S42.254A Nondisp fx of greater tubero sity of right humerus, init Assessments Date Code Description Provider 05/04/2020 S42.141D Displaced fracture o f glenoid cavity of scapula, right shoulder, subsequent encounter for fracture with routine healing Steph Saba PA-C 05/04/2020 S42.254D Nondisplaced fractur e of greater tuberosity of right humerus, subsequent encounter for fracture with routine healing Steph Saba PA-C 05/02/2020 S42.141A Displaced fracture o f glenoid cavity of scapula, right shoulder, initial encounter for closed fracture MEJIA Paz 05/02/2020 S42.254A Nondisplaced fractur e of greater tuberosity of right humerus, initial encounter for closed fracture MEJIA Paz Plan of Treatment Future Appointment(s):* 05/09/2020 3:30 pm - MRI at [facility] * 05/10/2020 7:30 pm - MEJIA Paz at [place] 05/04/2020 - Steph Saba PA-C* S42.141D Displaced fracture of glenoid cavity of scapula, right shoulder, subsequent encounter for fracture with routine healing* New Xrays:* MRI RT Shoulder, Scheduled: 05/09/20 * Follow up:* [facility] BOOK IT F/u with current appt on 05/10/2020 with [facility] * S42.254D Nondisplaced fracture of greater tuberosity of right humerus, subsequent encounter for fracture with routine healing Functional Status Description No Information Available Mental Status Description No Information Available Referrals Refer to Reason for Referral Status Appt Date James Barrientos PA DME PER HERMILO Chaidez AT [facility] ([id number]) TO LUMA NT Created [address] [place] [address] [phone] [place] [id number] [phone]
--- OUTSIDE RECORDS SUMMARY | 2020-06-03 14:51 | CCD | Continuity of Care Document ---
Author Author CAIT Ranjit Darren Organization Unknown Address [address] [place] [address], [address] [place] [address] Phone [phone] Care Team Providers Care Slitter And Rewinder Machine Operator Name Role Phone Partha Rodriguez MD AUTM [phone] Aure James MD AUTM [phone] Problems Active Problems Provider Date Essential hypertension [...] Available Procedures Date Code Description Status 05/04/2020 68634 X-Ray Shoulder Complete Complete d 05/02/2020 54301 FX Proximal Humerus W/O Manipula tion Completed Medical Devices Description No Information Available Encounters Type Date Location Provider Dx Diagnosis Office Visit 05/04/2020 5:00p [place] Gabriel PA-C S42.141 D Disp fx of glenoid cav of scapula, r shldr, 7thD S42.254D Nondisp fx of greater tubero sity of r humer, 7thD Office Visit 05/02/2020 5:30p [place] MEJIA Paz S42.141 A Disp fx of glenoid cavity of scapula, right shoulder, init S42.254A Nondisp fx of greater tubero sity of right humerus, init Assessments Date Code Description Provider 05/04/2020 S42.141D Displaced fracture o f glenoid cavity of scapula, right shoulder, subsequent encounter for fracture with routine healing Steph Gabriel PA-C 05/04/2020 S42.254D Nondisplaced fractur e of greater tuberosity of right humerus, subsequent encounter for fracture with routine healing Steph Gabriel PA-C 05/02/2020 S42.141A Displaced fracture o f glenoid cavity of scapula, right shoulder, initial encounter for closed fracture MEJIA Paz 05/02/2020 S42.254A Nondisplaced fractur e of greater tuberosity of right humerus, initial encounter for closed fracture MEJIA Paz Plan of Treatment 05/04/2020 - Steph Gabriel PA-C* S42.141D Displaced fracture of glenoid cavity of scapula, right shoulder, subsequent encounter for fracture with routine healing* Follow up:* [facility] F/u with current appt on 05/10/2020 with [facility] * S42.254D Nondisplaced fracture of greater tuberosity of right humerus, subsequent encounter for fracture with routine healing Functional Status Description No Information Available Mental Status Description No Information Available Referrals Refer to Reason for Referral Status Appt Date James Barrientos PA MRI APPROVED PER [employer] FOR MRI OF RIGHT SHOULDER (12140) TO MRI. DG Created [address] [facility] [address] [place] [id number] [phone] James Barrientos PA DME PER JADE M. AT [facility] FOR SHOULDER IMMOBILIZER ([id number]) TO LUMA OLIVIER Created [address] [place] [address] [address] [place] [address] [phone]
--- OUTSIDE RECORDS SUMMARY | 2020-06-03 14:51 | CCD ---
Continuity of Care Document (CCD) Created on: 05/22/2020 Ranjit Soto External Reference #: [id number] : 1995 Sex: Male Author Author Ranjit SABA PA-C Organization Unknown Address [address] [address] Phone [phone] Care Team Providers Care Special Education Resource Teacher Name Role Phone Partha Rodriguez MD AUTM [phone] Aure James MD AUTM [phone] Problems Active Problems Provider Date Essential hypertension [...] drive to or from mri 2tabs Allan Saba MD 05/10/2020 Acetaminophen-Codeine #3 300-30mg Tablets take [...] Available Procedures Date Code Description Status 05/04/2020 64805 X-Ray Shoulder Complete Complete d 05/02/2020 20251 FX Proximal Humerus W/O Manipula tion Completed Medical Devices Description No Information Available Encounters Type Date Location Provider Dx Diagnosis Office Visit 05/04/2020 5:00p [place] Steph Saba PA-C S42.141 D Disp fx of glenoid cav of scapula, r shldr, 7thD S42.254D Nondisp fx of greater tubero sity of r humer, 7thD Office Visit 05/02/2020 5:30p [place] MEJIA Paz S42.141 A Disp fx of [...] fracture with routine healing Steph Saba PA-C 05/03/2020 S42.141D Displaced fracture o f glenoid cavity of scapula, right shoulder, subsequent encounter for fracture with routine healing MEJIA Paz 05/03/2020 S42.254D Nondisplaced fractur e of greater tuberosity of right humerus, subsequent encounter for fracture with routine healing MEJIA Paz 05/02/2020 S42.141A Displaced fracture o f glenoid cavity of scapula, right shoulder, initial encounter for closed fracture MEJIA Paz 05/02/2020 S42.254A Nondisplaced fractur e of greater tuberosity of right humerus, initial encounter for closed fracture MEJIA Paz Plan of Treatment Future Appointment(s):* 05/26/2020 1:45 pm - tSeph Saba PA-C at [place] 05/04/2020 - Steph Saba PA-C* S42.141D Displaced fracture of glenoid cavity of scapula, right shoulder, subsequent encounter for fracture with routine healing* Follow up:* [facility] F/u with current appt on 05/10/2020 with [facility] * S42.254D Nondisplaced fracture of greater tuberosity of right humerus, subsequent encounter for fracture with routine healing Functional Status Description No Information Available Mental Status Description No Information Available Referrals Refer to Reason for Referral Status Appt Date James Barrientos PA MRI APPROVED PER [employer] FOR MRI OF RIGHT SHOULDER (04214) TO MRI. DG Created [facility] [address] [place], [place] [id number] [phone] James Barrientos PA DME PER HERMILO Chaidez AT [facility] FOR SHOULDER IMMOBILIZER ([id number]) TO LUMA NT Created [address] [place], [place] [address] [phone]
--- OUTSIDE RECORDS SUMMARY | 2020-06-03 14:51 | CCD | Continuity of Care Document ---
Author Author Ranjit ARREDONDO M.D. Organization Unknown Address [address] [place] [address] Phone [phone] Care Team Providers Care Director Of Cloud Services Name Role Phone Partha Rodriguez M.D. AUTM [phone] Aure James MD AUTM [phone] Problems Active Problems Provider Date Generalized convulsive epilepsy Liban Arredondo M.D. Onset: 0 05/17/2020 Localization-related epilepsy Liban Arredondo M.D. Onset: 04/2021 Chronic tension-type headache Liban Arredondo M.D. Onset: 04/2021 Disorders of initiating and maintaining sleep Kaylynn Narayan Onset: 05/17/2020 Syncope and collapse Liban Arredondo M.D. Onset: 05/17/2020 Social History Type Date Description Comments Sex Unknown Tobacco Use Start: Unknown Patient has never smoked Allergies, Adverse Reactions, Alerts Description No Known Drug Allergies Medications Active Medications SIG Qnty Indications Ordering Provide r Date Levetiracetam 750mg Tablets take one tablet by mouth twice a day maximum daily dose = 2 60tabs Liban Arredondo M.D. 05/17/2020 Immunizations Description No Information Available Vital Signs Date Vital Result Comment 05/17/2020 8:31am BP Systolic 140 mmHg BP Diastolic 100 mmHg Heart Rate 74 /min Respiratory Rate 14 /min Height 71 inches 5'11" Weight 175.00 lb BMI (Body Mass Index) 24.4 kg/m2 [place] Body Weight 172 lb Results Description No Information Available Procedures Description No Information Available Medical Devices Description No Information Available Encounters Type Date Location Provider Dx Diagnosis Office Visit 05/17/2020 8:00a Main office - [place] Kaylynn Narayan G40.309 Gen idiopathic epilepsy, not intractable, w/o stat epi G40.009 Local-rel idio epi w seiz of loc onst,not ntrct,w/o stat epi G44.221 Chronic tension-type headach e, intractable F51.01 Primary insomnia R55 Syncope and collapse Assessments Date Code Description Provider 05/17/2020 G40.309 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 05/17/2020 G40.009 Localization-related (focal) (partial) idiopathic epilepsy and epileptic syndromes with seizures of localized onset, not intractable, without status epilepticus Liban Arredondo M.D. 05/17/2020 G44.221 Chronic tension-type headache, i ntractable Liban Arredondo M.D. 05/17/2020 F51.01 Primary insomnia Laura Narayan 05/17/2020 R55 Syncope and collapse Liban Arredondo M.D. Plan of Treatment Future Appointment(s):* 06/03/2020 2:00 pm - Ans/VS at Main [facility] * 06/03/2020 12:45 pm - EEG at Main [facility] Functional Status Description No Information Available Mental Status Description No Information Available Referrals Description No Information Available
--- OUTSIDE RECORDS SUMMARY | 2020-06-03 14:51 | CCD | Continuity of Care Document ---
Author Author Ranjit ARREDONDO M.D. Organization Unknown Address [address] [place] [address] Phone [phone] Care Team Providers Care Winding Lathe Operator Name Role Phone Partha Rodriguez M.D. AUTM [phone] Aure James MD AUTM [phone] Problems Active Problems Provider Date Generalized convulsive [...] lb BMI (Body Mass Index) 24.4 kg/m2 [place] Body Weight 172 lb Results Description No Information Available Procedures Description No Information Available Medical Devices Description No Information Available Encounters Type Date Location Provider Dx Diagnosis Office Visit 05/17/2020 8:00a [facility] Kaylynn Narayan G40.309 Gen idiopathic epilepsy, not [...] Appointment(s):* 06/03/2020 2:00 pm - Ans/VS at [facility] * 06/03/2020 12:45 pm - EEG at [facility] Functional Status Description No Information Available Mental Status Description No Information Available Referrals Description No Information Available
[2020-06-03] MEDS ORDERED: levETIRAcetam INJection 1,000 MG in D5W 100 ML IV ONE (15:30)
--- OUTSIDE RECORDS SUMMARY | 2020-06-03 15:50 | CCD ---
Author Author [facility] Organization [facility] Address Unknown Phone Unavailable Care Team Providers Care Independent Beauty Consultant Name Role Phone Chanel MOSELEY MD Unavailable [...] SETTER, Chanel BROWN MD Unavailable Unavailable SETTER, Chanle BROWN MD Unavailable Unavailable SETTER, Chanel BROWN MD Unavailable Unavailable SETTER, Chanel BROWN MD Unavailable Unavailable SETTER, Chanel BROWN MD Unavailable Unavailable SETTER, Chanel BROWN MD Unavailable Unavailable SETTER, Chanel BROWN MD Unavailable Unavailable SETTER, Chanel BROWN MD Unavailable Unavailable SETTER, Chanel BORWN MD Unavailable Unavailable SETTER, Chanel BROWN MD [...] Unavailable SETTER, Chanel BROWN MD Unavailable Unavailable SETTERChnael MD Unavailable Unavailable SETTERChanel MD Unavailable Unavailable [...] SETTER, Chanel BROWN MD Unavailable Unavailable Fish, [facility], PA-C Unavailable Unavailabl e Fish, [facility], PA-C Unavailable Unavailabl e Fish, [facility], PA-C Unavailable Unavailabl e Fish, [facility], PA-C Unavailable Unavailabl e Fish, [facility], PA-C Unavailable Unavailabl e Fish, [facility], PA-C Unavailable Unavailabl e Fish, [facility], PA-C Unavailable Unavailabl e Fish, [facility], PA-C Unavailable Unavailabl e Fish, [facility], PA-C Unavailable Unavailabl e Fish, [facility], PA-C Unavailable Unavailabl e Fish, [facility], PA-C Unavailable Unavailabl e Fish, [facility], PA-C Unavailable Unavailabl e Fish, [facility], PA-C Unavailable Unavailabl e Fish, [facility], PA-C Unavailable Unavailabl e Fish, [facility], PA-C Unavailable Unavailabl e Fish, [facility], PA-C Unavailable Unavailabl e Fish, [facility], PA-C Unavailable Unavailabl e Fish, [facility], PA-C Unavailable Unavailabl e Fish, [facility], PA-C Unavailable Unavailabl e Fish, [facility], PA-C Unavailable Unavailabl e Fish, [facility], PA-C Unavailable Unavailabl e Fish, [facility], PA-C Unavailable Unavailabl e Fish, [facility], PA-C Unavailable Unavailabl e Fish, [facility], PA-C Unavailable Unavailabl e Fish, [facility], PA-C Unavailable Unavailabl e Fish, [facility], PA-C Unavailable Unavailabl e Fish, [facility], PA-C Unavailable Unavailabl e Fish, [facility], PA-C Unavailable Unavailabl e Fish, [facility], PA-C Unavailable Unavailabl e Fish, [facility], PA-C Unavailable Unavailabl e Fish, [facility], PA-C Unavailable Unavailabl e Fish, [facility], PA-C Unavailable Unavailabl e Fish, [facility], PA-C Unavailable Unavailabl e Liban Arredondo MD [...] Unavailable Unavailable Liban Arredondo MD Unavailable Unavailable Libna Arredondo MD Unavailable Unavailable Liban Arredondo MD [...] Ali, Liban MD Unavailable Unavailable DIEGO, M JUNG PA Unavailable [...] is protected by Article 27-F of the [place] State Public Health law. If you continue you may have access to information: Regarding HIV / AIDS; Provided by facilities licensed or operated by the [facility] Office of Mental Health; or Provided by the [facility] Office for People With Developmental Disabilities. If such information is present, then the following [facility] mandated warning applies: This information has [...] law may result in a fine or residential sentence or both. A general authorization for [...] STEPHANIE MOSELEY MD 06/15/2020 12:00:00 A M [facility] Outpatient Attender: Liban Arredondo MD Main office [facility] 05/17/2020 07:00:00 AM EST [facility] ([facility]) Office Visit Attender: Steph PENA PA-C Physical Therapy 05/04/2020 04:00:00 PM EST [facility] ([facility]) Outpatient Attender: JUNG BA Physical Therapy 04/06 04:30:00 PM EST [facility] ([facility]) Medications Medication Brand [...] 05/17/2020 12:00:00 AM EST ORAL active [facility] ([facility]) 5 mg 05/10/2020 12:00:00 [...] Valium 05/10/2020 12:00:00 AM EST active [facility] ([facility]) 300-30 mg 05/02/2020 12:00:00 AM [...] #3 05/02/2020 12:00:00 AM EST active [facility] ([facility]) 750 mg 04/30/2020 12:00:00 [...] type / Coverage type Policy ID Covered constitution party ID Covered constitution party's relationship to taylor Policy Taylor Plan Information TIN [id number] SP [id number] 400 O UNAVAILABLE U[place]LE [place] CARE [place] O [id number] S [id number] [place]ARE [place] [id number] S [id number] TIN I [id number] Self [id number] 400 SELF PAY ONLY NONE SP NONE TIN [id number] SP [id number] [facility] FEDERAL EMPLOYEE PROGRAM [id number] MO2 [id number] [facility] [id number] FA2 [id number] BS [facility] Health Maintenance Organization (HMO) [id number] F amily Dependent [id number] [facility] [id number] MO2 [id number] BS [facility] Health Maintenance Organization [place] [id number] F amily Dependent [id number] [employer] Medigap Part B Family Depe ndent BS [facility] Health Maintenance Organization (O) F amily Dependent BS [facility] [id number] MO2 [id number] Problems, Conditions, and Diagnoses Code Display Name Description Problem Type Effective Dates Data Source(s) 854183035 Syncope and collapse Syncope and collapse Problem 05/17/2020 12:00:00 AM EST [facility] ([facility]) [id number] Disorders of initiating and maintaining sleep Disorders of initiating and maintaining sleep Problem 05/17/2020 12:00:00 AM EST [facility] ([facility]) 556099032 Chronic tension-type headache Chronic tension-type hea dache Problem 05/17/2020 12:00:00 AM EST [facility] ([facility]) 493610660 Localization-related epilepsy Localization-related epi lepsy Problem 05/17/2020 12:00:00 AM EST [facility] ([facility] ) 22686863 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 Problem 05/17/2020 12:00:00 AM EST [facility] ([facility]) 54472275 Essential hypertension Essential hypertension Problem 05/04/2020 12:00:00 AM EST [facility] ([facility] ) Surgeries/Procedures Procedure Description Date Indications Data Source(s) MRI Upper Extremity Any Joint 05/11/2020 12:00:[address] [facility] ([facility] ) RADEX SHOULDER COMPLETE MINIMUM 2 VIEWS 05/04/2020 12: 00:00 AM EST [facility] ([facility] ) CLTX PROXIMAL HUMERAL FRACTURE W/O MANIPULATION 2019 12:00:00 AM EST [facility] ([facility] ) Results ID Date Data Source [id number] 05/20/2020 12:00:00 AM EST [facility]y Imaging Steph Aceves Harvey Pa-C Patient Name: CARLOS THOMPSON [id number] [facility] Date [place] : 1995[place] [address]- Date of Exam: [facility]#: Fax: [phone] EXAM: CT UPPER EXTREMITY WITHOUT [...] other findings as described above.Accredited by the [employer] in [place].CRICKET Silva/Chuyita you for referring CARLOS THOMPSON to our office. Electronically Signed - LYSSA SWANSON DO 05/20/20 16:21 Name Value Range Interpretation Code Description Data Domi rce(s) Supporting Document(s) ID Date Data Source [id number] 04/26/2020 12:00:00 AM EST [facility] Name Value Range Interpretation Code Description Data Domi rce(s) Supporting Document(s) SARS coronavirus 2 Ag [facility] This lab was ordered by [place] [facility] and reported by [place] [facility]. Procedure Vital Signs ID Date Data Source UNK Name Value Range Interpretation Code Description Data Source(s) [place] body weight 172 [lb_av] 172 [lb_av] [facility] T ([facility] ) Body mass index (BMI) [Ratio] 24.4 kg/m2 24.4 k g/m2 [facility] ([facility], ) Body weight 175.00 [lb_av] 175.00 [lb_av] [facility] T ([facility], ) Body height 71 [in_i] 71 [in_i] [facility] ([facility], ) 5'11" Respiratory rate 14 /min 14 /min [facility] ( [facility], ) Heart rate 74 /min 74 /min [facility] ([facility] ) Diastolic blood pressure 100 mm[Hg] 100 mm[Hg] [facility] ([facility] ) Systolic blood pressure 140 mm[Hg] 140 mm[Hg] M EDENT ([facility], ) Body mass index (BMI) [Ratio] 24.0 kg/m2 24.0 k g/m2 [facility] ([facility] ) Body weight 173.00 [lb_av] 173.00 [lb_av] MEDEN T ([facility]) Body height 71.25 [in_i] 71.25 [in_i] [facility] ([facility]) 5'11.25" Body temperature 98.8 [degF] 98.8 [degF] [facility] ([facility])
--- NOTE | 2020-06-03 16:15 | REP ---
INDICATION: trauma. COMPARISON: Comparison head CT study April 28, 2020.. TECHNIQUE: Helical scanning is acquired. 5 mm axial images were reformatted. Coronal MPR images were generated. FINDINGS: Bone window settings demonstrate an intact bony calvarium. There is no evidence of skull fracture or incidental bony calvarial lesion. There is moderate mucosal thickening affecting the maxillary sinuses bilaterally. The visualized paranasal sinuses are otherwise clear. No intraorbital abnormality is seen. On soft tissue window setting images; the lateral, third, and fourth ventricles are normal in size and position. Hook-white differentiation pattern is normal above and below the tentorium. There are is no evidence of intracranial hemorrhage. No mass, edema, infarction, or midline shift is seen. No extra-axial fluid collection is appreciated. IMPRESSION: Bilateral maxillary sinus mucosal thickening noted incidentally. No skull fracture or intracranial injury seen. Negative brain CT.. <Electronically signed by Tai Alvarado > 06/03/20 [id number]
--- NOTE | 2020-06-03 16:16 | REP ---
INDICATION: trauma. COMPARISON: NONE. TECHNIQUE: Helical scanning is acquired and 2 mm axial images re-formatted. Coronal MPR images are generated and reviewed. FINDINGS: Preliminary digital pattern puncher views are unremarkable. No mandibular fracture is appreciated. No condylar neck fracture is seen. No skull base fracture is observed. The upper cervical spine elements are unremarkable. The nasal bone and inferior maxillary spine appear intact. There is moderate mucosal thickening affecting the maxillary sinuses bilaterally. Ostiomeatal complexes are obscured by mucosal thickening bilaterally. The bony nasal septum deviates to the left somewhat with a septal beak. No intraorbital abnormality is seen. No periorbital hematoma is seen. Zygomatic arches are intact bilaterally. IMPRESSION: No facial fracture seen. Moderate mucosal thickening affecting the maxillary sinuses bilaterally. <Electronically signed by Tai Alvarado > 06/03/20 [id number]
[2020-06-03 16:39] VITALS: BP 153/93
--- NOTE | 2020-06-04 07:23 | ED PDOC ---
Post-Departure Follow-Up radiology report faxed to ronal James Sarah MD Jun 04, 2020 07:23
== END 2020-06-03 16:41 | disposition home or self-care (01) ==
LOC: M ED 14:41
DX: G40.319 Generalized idiopathic epilepsy and epileptic syndromes, intractable, without status epilepticus (principal); F10.10 Alcohol abuse, uncomplicated; S00.83XA Contusion of other part of head, initial encounter; X58.XXXA Exposure to other specified factors, initial encounter; Y92.9 Unspecified place or not applicable; Y93.9 Activity, unspecified; Y99.9 Unspecified external cause status; Z79.899 Other long term (current) drug therapy; J30.89 Other allergic rhinitis; J30.81 Allergic rhinitis due to animal (cat) (dog) hair and dander
CPT/HCPCS: 70450; 70486; 96374; 99284; G0480; J1953

== ENCOUNTER → 2020-06-22 | Outpatient (REF) | payer OTHER ==
[~2020-06-22] MED LIST changes: +AMOX875T2 PO; +METO200T28 PO; +SERT-141 PO
[2020-06-22 19:15] LABS: BLOOD UREA NITROGEN 6 MG/DL (7-18); CALCIUM LEVEL 9.3 MG/DL (8.5-10.1); CARBON DIOXIDE LEVEL 26 MEQ/L (21-32); CHLORIDE LEVEL 102 MEQ/L (98-107); CREATININE FOR GFR 0.96 MG/DL (0.70-1.30); GLOMERULAR FILTRATION RATE > 60.0 (>60); GLUCOSE, FASTING 95 MG/DL (70-100); POTASSIUM SERUM 4.8 MEQ/L (3.5-5.1); SODIUM LEVEL 140 MEQ/L (136-145)
[2020-06-22 20:06] LABS: HIV 1&2 SCREEN CENTAUR NEGATIVE (NEGATIVE)
[2020-06-22 20:40] LABS: CHLAMYDIA DNA AMPLIFICATION NEGATIVE (NEGATIVE); GC DNA AMPLIFICATION NEGATIVE (NEGATIVE)
== END ==
LOC: M SFHCPLAZ 14:27
PROVIDERS: ATTEND Family Medicine
DX: Z11.3 Encounter for screening for infections with a predominantly sexual mode of transmission (principal); Z01.818 Encounter for other preprocedural examination

== ENCOUNTER → 2020-07-08 | Outpatient (CLI) | payer OTHER ==
[2020-07-08 16:06] LABS: BASO # 0.1 10^3/uL (0.0-0.2); BASO % 1.4 % (0.0-1.0); EOS # 0.1 10^3/uL (0.0-0.5); EOS % 1.1 % (0.0-3.0); HEMATOCRIT 47.9 % (42.0-52.0); HEMOGLOBIN 15.9 g/dl (13.5-17.5); LYMPH # 3.6 10^3/uL (1.5-5.0); LYMPH % 51.4 % (24.0-44.0); MEAN CORPUSCULAR HGB CONC 33.2 g/dl (32.0-36.5); MEAN CORPUSCULAR VOLUME 99.4 fl (80.0-96.0); MONO # 0.9 10^3/uL (0.0-0.8); MONO % 12.3 % (2.0-8.0); NEUTROPHILS # 2.3 10^3/uL (1.5-8.5); NEUTROPHILS % 33.4 % (36.0-66.0); PLATELET COUNT, AUTOMATED 187 10^3/uL (150-450); RED BLOOD COUNT 4.82 10^6/uL (4.30-6.10)
[2020-07-08 16:37] LABS: ALBUMIN 3.7 GM/DL (3.2-5.2); ALT/SGPT 33 U/L (12-78); BILIRUBIN,TOTAL 0.2 MG/DL (0.2-1.0); BLOOD UREA NITROGEN 5 MG/DL (7-18); CALCIUM LEVEL 8.9 MG/DL (8.5-10.1); CARBON DIOXIDE LEVEL 29 MEQ/L (21-32); CHLORIDE LEVEL 108 MEQ/L (98-107); CREATININE FOR GFR 0.92 MG/DL (0.70-1.30); GLOMERULAR FILTRATION RATE > 60.0 (>60); GLUCOSE, FASTING 110 MG/DL (70-100); POTASSIUM SERUM 4.6 MEQ/L (3.5-5.1); SODIUM LEVEL 142 MEQ/L (136-145); TOTAL PROTEIN 7.2 GM/DL (6.4-8.2)
== END ==
LOC: M PLALAB 13:53
PROVIDERS: ATTEND Psychiatry & Neurology Neurology
DX: R56.9 Unspecified convulsions (principal)

== ENCOUNTER → 2020-08-22 | Outpatient (CLI) | payer OTHER ==
--- NOTE | 2020-08-22 17:42 | REP ---
INDICATION: R22.1 SWELLING/MASS/LUMP, NECK COMPARISON: None. TECHNIQUE: Hook scale and color evaluation using linear high-frequency transducer. FINDINGS: Directed ultrasound examination in the left submandibular region demonstrates a hypoechoic slightly vascular ovoid lesion measuring 1.7 x 0.9 x 1.9 cm in the subcutaneous tissue which is otherwise nonspecific in appearance. Patient states this is a chronic finding noted for approximately 7-8 years. Structures nonspecific but may represent small lipoma. IMPRESSION: Small chronic hypoechoic ovoid structure is nonspecific and likely benign. Differential diagnosis includes but is not limited to small lipoma. <Electronically signed by Eber Bran > 08/22/20 [id number]
== END ==
LOC: M WHC 16:06
PROVIDERS: ATTEND Family Medicine
DX: R22.1 Localized swelling, mass and lump, neck (principal)

== ENCOUNTER 2020-09-12 06:07 | Emergency (ER) | payer OTHER ==
[~2020-09-12] VITALS: Ht 180.3 cm; Wt 82.7 kg
[2020-09-12] MEDS ORDERED: NS 1,000 ML IV ONE (06:10)
[2020-09-12 06:37] LABS: BASO # 0.1 10^3/uL (0.0-0.2); BASO % 1.1 % (0.0-1.0); EOS # 0.2 10^3/uL (0.0-0.5); EOS % 1.9 % (0.0-3.0); HEMATOCRIT 45.6 % (42.0-52.0); HEMOGLOBIN 15.6 g/dl (13.5-17.5); LYMPH # 3.7 10^3/uL (1.5-5.0); LYMPH % 38.4 % (24.0-44.0); MEAN CORPUSCULAR HEMOGLOBIN 33.1 pg (27.0-33.0); MEAN CORPUSCULAR HGB CONC 34.2 g/dl (32.0-36.5); MEAN CORPUSCULAR VOLUME 96.6 fl (80.0-96.0); MONO # 0.8 10^3/uL (0.0-0.8); MONO % 8.5 % (2.0-8.0); NEUTROPHILS # 4.8 10^3/uL (1.5-8.5); NEUTROPHILS % 49.8 % (36.0-66.0); PLATELET COUNT, AUTOMATED 119 10^3/uL (150-450); RED BLOOD COUNT 4.72 10^6/uL (4.30-6.10); WHITE BLOOD COUNT 9.6 10^3/uL (4.0-10.0)
[2020-09-12 06:57] LABS: AMPHETAMINES LEVEL URINE NEGATIVE (NEGATIVE); BARBITURATES URINE NEGATIVE (NEGATIVE); BENZODIAZEPINES URINE NEGATIVE (NEGATIVE); CANNABINOIDS URINE NEGATIVE (NEGATIVE); COCAINE METABOLITE URINE NEGATIVE (NEGATIVE); METHADONE URINE NEGATIVE (NEGATIVE); OPIATES URINE NEGATIVE (NEGATIVE); PHENCYCLIDINE URINE NEGATIVE (NEGATIVE)
[2020-09-12 07:10] LABS: ACETAMINOPHEN LEVEL < 2.0 UG/ML (10.0-30.0); ALBUMIN 3.7 GM/DL (3.2-5.2); ALT/SGPT 29 U/L (12-78); BILIRUBIN,DIRECT < 0.1 MG/DL (0.0-0.2); BILIRUBIN,TOTAL 0.2 MG/DL (0.2-1.0); BLOOD UREA NITROGEN 8 MG/DL (7-18); CARBON DIOXIDE LEVEL 24 MEQ/L (21-32); CHLORIDE LEVEL 109 MEQ/L (98-107); CK-MB VALUE MASS < 1.0 NG/ML (<3.6); CPK CREATINE PHOSPHOKINASE 123 U/L (39-308); CREATININE FOR GFR 0.69 MG/DL (0.70-1.30); ETHYL ALCOHOL (ETHANOL) 0.439 % (0.000-0.010); GLOMERULAR FILTRATION RATE > 60.0 (>60); GLUCOSE, FASTING 89 MG/DL (70-100); MB/CK RELATIVE INDEX 0.81 (< OR =4); SALICYLATE LEVEL 6.7 MG/DL (5.0-30.0); SODIUM LEVEL 141 MEQ/L (136-145); TOTAL PROTEIN 6.9 GM/DL (6.4-8.2); TROPONIN I < 0.02 NG/ML (< 0.10)
[2020-09-12] MEDS ORDERED: PHENYTOIN INJection 1,000 MG in NS 100 ML IV ONE ×2 (08:40→10:00)
[2020-09-12] MEDS ORDERED: DILA50HA PO (08:48)
[2020-09-12 09:18] VITALS: BP 132/62
--- NOTE | 2020-09-12 20:06 | ECGEPIP ---
[facility] - ED Test Date: 2020-09-12 Pat Name: CARLOS THOMPSON Department: Room: - Gender: Male Linux Devops Engineer: Trish GARCIA : 1995 Requested By: MALA Milian Order Number: [id number] Reading MD: Henna Bobo Measurements Intervals [place] Rate: 76 P: 76 LA: 166 QRS: 65 QRSD: 106 T: 46 QT: 408 QTc: 459 Interpretive Statements Normal sinus rhythm Incomplete right bundle branch block decreased rate 04/29/20 Electronically Signed on 09-12-2020 20:06:31 EDT by Henna Bobo
== END 2020-09-12 10:24 | disposition home or self-care (01) ==
LOC: M ED 06:07
DX: G40.909 Epilepsy, unspecified, not intractable, without status epilepticus (principal); F10.129 Alcohol abuse with intoxication, unspecified; J30.89 Other allergic rhinitis; F17.210 Nicotine dependence, cigarettes, uncomplicated; F12.20 Cannabis dependence, uncomplicated; Z79.899 Other long term (current) drug therapy
CPT/HCPCS: 80048; 80076; 80143; 80180; 80307; 82077; 82550; 82553; 83605; 84443; 85025; 93005; 93041; 94760; 96361; 96365; 99285; J1165

== ENCOUNTER 2020-12-20 05:22 | Emergency (ER) | payer OTHER ==
[~2020-12-20] VITALS: Ht 180.3 cm; Wt 81.8 kg
[~2020-12-20 05:22] MED LIST changes: +DILA50HA PO
[2020-12-20] MEDS ORDERED: METO1TAB32 PO (06:03)
[2020-12-20] MEDS ORDERED: VENL25TA28 PO (06:04)
[2020-12-20] MEDS ORDERED: MIRT1TAB PO (06:04)
[2020-12-20] MEDS ORDERED: LORazepam 2 MG TAB PO PRN (07:45)
--- NOTE | 2020-12-20 08:18 | REP ---
INDICATION: SOB. COMPARISON: 04/29/2020 TECHNIQUE: Portable FINDINGS: The technique utilized in obtaining the radiograph has magnified the cardiac silhouette and accentuated the interstitial markings. The superior mediastinal structures are midline. The cardiac silhouette is unremarkable in size, shape, and position. The diaphragmatic surfaces of the lungs are regular, and the costophrenic angles are clear. The pulmonary [place] are clear. The imaged osseous structures are intact. IMPRESSION: There is no acute cardiopulmonary disease. <Electronically signed by Efren Gonzalez > 12/20/20 0861
[2020-12-20] MEDS ORDERED: THIAMINE 100 MG TAB PO SCH (09:00)
[2020-12-20] MEDS ORDERED: FOLIC ACID 1 MG TAB PO SCH (09:00)
[2020-12-20] MEDS ORDERED: MULTIVITAMINS/MINERALS THERAP 1 TAB PO SCH (09:00)
[2020-12-20 10:34] VITALS: BP 112/74
== END 2020-12-20 10:49 | disposition home or self-care (01) ==
LOC: M ED 05:22
DX: J06.9 Acute upper respiratory infection, unspecified (principal); F10.10 Alcohol abuse, uncomplicated; F33.9 Major depressive disorder, recurrent, unspecified; J30.2 Other seasonal allergic rhinitis; J30.81 Allergic rhinitis due to animal (cat) (dog) hair and dander; Z79.899 Other long term (current) drug therapy; F17.210 Nicotine dependence, cigarettes, uncomplicated

== ENCOUNTER 2021-07-18 02:58 | Inpatient (IN) | payer OTHER ==
[~2021-07-18] VITALS: Ht 180.3 cm; Wt 80.9 kg
[~2021-07-18 02:58] MED LIST changes: +METO1TAB32 PO; +MIRT1TAB PO; +VENL25TA28 PO
[2021-07-18] MEDS ORDERED: PHEN100C PO (03:08)
[2021-07-18] MEDS ORDERED: NICO1DIS12 TD (03:08)
[2021-07-18] MEDS ORDERED: PARO25TA4 PO (03:08)
[2021-07-18] MEDS ORDERED: NS 1,000 ML IV ONE (03:10)
[2021-07-18 03:46] LABS: BASO # 0.1 10^3/uL (0.0-0.2); BASO % 0.7 % (0.0-1.0); EOS # 0.2 10^3/uL (0.0-0.5); EOS % 1.7 % (0.0-3.0); HEMATOCRIT 43.4 % (42.0-52.0); HEMOGLOBIN 14.5 g/dl (13.5-17.5); LYMPH % 40.4 % (24.0-44.0); MEAN CORPUSCULAR HEMOGLOBIN 31.3 pg (27.0-33.0); MEAN CORPUSCULAR HGB CONC 33.4 g/dl (32.0-36.5); MEAN CORPUSCULAR VOLUME 93.5 fl (80.0-96.0); MONO # 0.7 10^3/uL (0.0-0.8); MONO % 7.1 % (2.0-8.0); NEUTROPHILS # 4.9 10^3/uL (1.5-8.5); NEUTROPHILS % 49.7 % (36.0-66.0); PLATELET COUNT, AUTOMATED 170 10^3/uL (150-450); RED BLOOD COUNT 4.64 10^6/uL (4.30-6.10); WHITE BLOOD COUNT 9.9 10^3/uL (4.0-10.0)
[2021-07-18 04:30] LABS: ACETAMINOPHEN LEVEL < 2.0 UG/ML (10.0-30.0); ALBUMIN 3.5 GM/DL (3.2-5.2); ALT/SGPT 21 U/L (12-78); BILIRUBIN,DIRECT < 0.1 MG/DL (0.0-0.2); BILIRUBIN,TOTAL 0.2 MG/DL (0.2-1.0); BLOOD UREA NITROGEN 6 MG/DL (7-18); CALCIUM LEVEL 7.9 MG/DL (8.5-10.1); CARBON DIOXIDE LEVEL 27 MEQ/L (21-32); CHLORIDE LEVEL 112 MEQ/L (98-107); ETHYL ALCOHOL (ETHANOL) 0.332 % (0.000-0.010); GLOMERULAR FILTRATION RATE > 60.0 (>60); GLUCOSE, FASTING 84 MG/DL (70-100); POTASSIUM SERUM 4.3 MEQ/L (3.5-5.1); SALICYLATE LEVEL 6.6 MG/DL (5.0-30.0); SODIUM LEVEL 144 MEQ/L (136-145); TOTAL PROTEIN 6.7 GM/DL (6.4-8.2)
[2021-07-18] MEDS ORDERED: LORazepam 2 MG TAB PO PRN ×2 (05:25→19:00)
[2021-07-18 05:59] LABS: AMPHETAMINES LEVEL URINE NEGATIVE (NEGATIVE); BARBITURATES URINE NEGATIVE (NEGATIVE); BENZODIAZEPINES URINE NEGATIVE (NEGATIVE); CANNABINOIDS URINE NEGATIVE (NEGATIVE); COCAINE METABOLITE URINE NEGATIVE (NEGATIVE); METHADONE URINE NEGATIVE (NEGATIVE); OPIATES URINE NEGATIVE (NEGATIVE); PHENCYCLIDINE URINE NEGATIVE (NEGATIVE)
[2021-07-18 06:06] LABS: RSV AMPLIFICATION NEGATIVE (NEGATIVE)
[2021-07-18] MEDS ORDERED: MULTIVITAMINS/MINERALS THERAP 1 TAB PO SCH (09:00)
[2021-07-18] MEDS ORDERED: THIAMINE 100 MG TAB PO SCH (09:00)
[2021-07-18] MEDS ORDERED: FOLIC ACID 1 MG TAB PO SCH (09:00)
[2021-07-18 10:24] LABS: PHENYTOIN (DILANTIN) 1.4 UG/ML (10.0-20.0); SALICYLATE LEVEL 5.9 MG/DL (5.0-30.0)
[2021-07-18] MEDS ORDERED: PHENYTOIN INJection 1,000 MG in NS 100 ML IV ONE (15:05)
[2021-07-18] MEDS ORDERED: MOM 30ML SUSPENSION UDC PO PRN (19:00)
[2021-07-18] MEDS ORDERED: ACETAMINOPHEN TAB 650MG DOSE (2X325MG) PO PRN (19:00)
[2021-07-18] MEDS ORDERED: MAALOX 30 ML SUSP *UDC PO PRN (19:00)
[2021-07-18 22:00] VITALS: BP 156/90
[2021-07-18] MEDS: THIAMINE 100 MG TAB PO SCH (22:05)
[2021-07-19 02:00] VITALS: BP 150/98
[2021-07-19 06:00] VITALS: BP 164/90
[2021-07-19] MEDS ORDERED: FLUoxetine 10 MG CAP PO SCH (09:00)
[2021-07-19] MEDS: THIAMINE 100 MG TAB PO SCH ×2 (09:50→21:52)
[2021-07-19] MEDS: FOLIC ACID 1 MG TAB PO SCH (09:50)
[2021-07-19] MEDS: MULTIVITAMINS/MINERALS THERAP 1 TAB PO SCH (09:50)
[2021-07-19] MEDS: NICOTINE 21MG/24HR 1 EA TRANSDERMAL TD SCH (09:50)
[2021-07-19 14:00] VITALS: BP 122/68
[2021-07-19 17:16] VITALS: BP 122/68
[2021-07-19] MEDS ORDERED: ACET325T43 PO (19:35)
[2021-07-19] MEDS ORDERED: HOME MED LIST COMPLETE! XX SCH (19:40)
[2021-07-19] MEDS: traZODone 50 MG TAB PO PRN (21:52)
[2021-07-19 22:00] VITALS: BP 144/83
[2021-07-20 06:00] VITALS: BP 137/79
[2021-07-20] MEDS ORDERED: PARoxetine 25 MG CR TAB (PAXIL CR) PO SCH (09:00)
[2021-07-20] MEDS: MULTIVITAMINS/MINERALS THERAP 1 TAB PO SCH (10:38)
[2021-07-20] MEDS: THIAMINE 100 MG TAB PO SCH (10:38)
[2021-07-20] MEDS: FOLIC ACID 1 MG TAB PO SCH (10:38)
[2021-07-20] MEDS: NICOTINE 21MG/24HR 1 EA TRANSDERMAL TD SCH (10:38)
[2021-07-20] MEDS: SERTRALINE HCL 50 MG TAB PO SCH (12:02)
[2021-07-20 19:05] VITALS: BP 138/82
[2021-07-20] MEDS ORDERED: ARIPiprazole 2 MG TAB PO SCH (21:00)
[2021-07-20] MEDS ORDERED: PHENYTOIN ER 100 MG CAP PO SCH (21:00)
[2021-07-20] MEDS: traZODone 50 MG TAB PO PRN (21:54)
[2021-07-21 07:04] VITALS: BP 145/83
[2021-07-21] MEDS: NICOTINE 21MG/24HR 1 EA TRANSDERMAL TD SCH (09:57)
[2021-07-21] MEDS: SERTRALINE HCL 50 MG TAB PO SCH (09:57)
[2021-07-21] MEDS ORDERED: ABIL1TAB13 PO (10:22)
[2021-07-21] MEDS ORDERED: SERT50TA29 PO (10:22)
== END 2021-07-21 13:24 | disposition home or self-care (01) | DRG 751 ==
LOC: M ED 02:58 → M PSY 19:06
PROVIDERS: ADMIT Psychiatry & Neurology Psychiatry; ATTEND Psychiatry & Neurology Psychiatry
DX: F33.9 Major depressive disorder, recurrent, unspecified (principal); G40.909 Epilepsy, unspecified, not intractable, without status epilepticus; I10 Essential (primary) hypertension; F41.1 Generalized anxiety disorder; F84.0 Autistic disorder; J30.2 Other seasonal allergic rhinitis; J30.81 Allergic rhinitis due to animal (cat) (dog) hair and dander; F90.9 Attention-deficit hyperactivity disorder, unspecified type; F17.210 Nicotine dependence, cigarettes, uncomplicated; F10.10 Alcohol abuse, uncomplicated; T43.222A Poisoning by selective serotonin reuptake inhibitors, intentional self-harm, initial encounter; Z87.81 Personal history of (healed) traumatic fracture; Z63.5 Disruption of family by separation and divorce; Z79.899 Other long term (current) drug therapy

== ENCOUNTER 2022-03-22 16:32 | Emergency (ER) | payer OTHER ==
[~2022-03-22 16:32] MED LIST changes: +ABIL1TAB13 PO; +ACET325T43 PO; +DOXY-443 PO; +NICO1DIS12 TD; +PARO25TA11 PO; +PHEN100C PO; +SERT50TA29 PO
[2022-03-22] MEDS ORDERED: ACETAMINOPHEN 500 MG TAB PO ONE (20:10)
[2022-03-22 20:46] VITALS: BP 138/82
== END 2022-03-22 20:47 | disposition home or self-care (01) ==
LOC: EDBD 16:32 → M ED 16:32
DX: M25.561 Pain in right knee (principal); I10 Essential (primary) hypertension; G40.909 Epilepsy, unspecified, not intractable, without status epilepticus; F41.9 Anxiety disorder, unspecified; F32.9 Major depressive disorder, single episode, unspecified; J30.2 Other seasonal allergic rhinitis; J30.81 Allergic rhinitis due to animal (cat) (dog) hair and dander; Z91.51 Personal history of suicidal behavior; F10.10 Alcohol abuse, uncomplicated; F12.10 Cannabis abuse, uncomplicated; F17.200 Nicotine dependence, unspecified, uncomplicated